=== PATIENT | female | born 1980 | race Caucasian/White ===

== ENCOUNTER 2018-06-08 14:15 | Emergency (ER) | payer MEDICARE, MEDICAID ==
--- NOTE | 2018-06-08 16:14 | EDM.PDOC ---
ED HPI GENERAL MEDICAL PROBLEM - General Chief Complaint: Abdominal Pain Stated Complaint: NAUSEA/VOMITING/ABDOMINAL PAIN Time Seen by Provider: 06/08/18 14:55 Source of Information: Reports: Patient History Limitations: Reports: No Limitations - History of Present Illness INITIAL COMMENTS - FREE TEXT/NARRATIVE: 37-year-old female with chronic abdominal bloating, nausea and vomiting which is worsening over the past couple of days. She usually doctors in [place] recently switched to [place] because she got "tired of the doctors up there ". She was seen in the clinic yesterday and started on Phenergan, called the clinic today to let them know that she wasn't doing any better so they sent her to the emergency room. She think she's been running fevers and having occasional chills, no diarrhea. She does not have a history of abdominal surgeries. Pain is mostly across the upper abdomen, worsens after eating. She claims she's got some kind of a diabetic neuropathy of her stomach. Worsens with: Reports: Eating Associated Symptoms: Reports: Fever/Chills, Malaise, Nausea/Vomiting. Denies: Loss of Appetite, Shortness of Breath abdominal Pain Score (Numeric/FACES): 6 - Related Data Allergies Allergy/AdvReac Type Severity Reaction Status Date / Time albuterol Allergy Tachycardia Verified 06/08/18 14:43 gabapentin Allergy Confusion Verified 06/08/18 14:43 pregabalin [From Lyrica] Allergy Confusion Verified 06/08/18 14:43 Home Meds: Home Meds ARIPiprazole [Aripiprazole] 30 mg PO DAILY 06/08/18 [History] Cefuroxime [Ceftin] 250 mg PO BID 06/08/18 [History] Dicyclomine [Bentyl] 10 mg PO ASDIRECTED 06/08/18 [History] Indomethacin [Indocin] 25 mg PO TID 06/08/18 [History] Ipratropium [place] 3 ml INH QID PRN 06/08/18 [History] LORazepam 1 mg PO BEDTIME PRN 06/08/18 [History] Levalbuterol Tartrate [Levalbuterol Tartrate Hfa] 2 puff IN Q4H PRN 06/08/18 [ History] Methylphenidate [Ritalin] 20 mg PO TID 06/08/18 [History] Montelukast [Singulair] 10 mg PO DAILY 06/08/18 [History] Naproxen [Naprosyn] 500 mg PO BID PRN 06/08/18 [History] Omeprazole 40 mg PO DAILY 06/08/18 [History] Pravastatin Sodium 10 mg PO DAILY 06/08/18 [History] Promethazine HCl 25 mg PO Q6H 06/08/18 [History] Sulfamethoxazole/Trimethoprim [Sulfamethoxazole-Tmp Ds Tablet] 1 tab PO BID [History] lamoTRIgine 300 mg PO DAILY 06/08/18 [History] metFORMIN HCl [Metformin HCl] 500 mg PO BID 06/08/18 [History] traMADol HCl [Tramadol HCl] 50 mg PO QID 06/08/18 [History] Past Medical History HEENT History: Reports: Impaired Vision Cardiovascular History: Reports: Other (See Below) Other Cardiovascular History: tachacardia Respiratory History: Reports: Asthma Gastrointestinal History: Reports: GERD Psychiatric History: Reports: Anxiety, Bipolar, Depression, Suicidal Ideation Endocrine/Metabolic History: Reports: Diabetes, Type II - Past Surgical History HEENT Surgical History: Reports: Other (See Below) Other HEENT Surgeries/Procedures: lanced cyst behind ear GI Surgical History: Reports: EGD Female Surgical History: Reports: Other (See Below) Other Female Surgeries/Procedures: rectal fistula Social & Family History - Tobacco Use Smoking Status *Q: Current Every Day Smoker Years of Tobacco use: 15 Packs/Tins Daily: 1.5 - Recreational Drug Use Recreational Drug Use: No ED ROS GENERAL - Review of Systems Review Of Systems: See Below Constitutional: Reports: Fever, Chills HEENT: Reports: No Symptoms Respiratory: Denies: Shortness of Breath Cardiovascular: Denies: Chest Pain GI/Abdominal: Reports: Abdominal Pain, Nausea, Vomiting. Denies: Diarrhea : Reports: No Symptoms Skin: Reports: No Symptoms Psychiatric: Reports: Anxiety ED EXAM, GI/ABD - Physical Exam Exam: See Below Exam Limited By: No Limitations General Appearance: Alert, No Apparent Distress Eyes: Bilateral: Normal Appearance (Normal hydration, no jaundice) Head: Atraumatic Respiratory/Chest: No Respiratory Distress, Lungs Clear GI/Abdominal Exam: Normal Bowel Sounds, Soft, Tender (Reacts with fairly significant tenderness to palpation across the upper abdomen) Extremities: Normal Inspection Neurological: Alert, Oriented Psychiatric: Normal Affect, Normal Mood Course - Vital Signs Last Recorded V/S: Last Vital Signs Temp 97.8 F 06/08/18 14:39 Pulse 109 H 06/08/18 14:39 Resp 12 06/08/18 14:39 BP 115/58 L 06/08/18 14:39 Pulse Ox 98 06/08/18 14:39 - Orders/Labs/Meds Orders: Active Orders 24 hr Category Date Time Status Abdomen Pelvis w Cont [CT] Stat Exams 06/08/18 15:59 Taken Labs: Laboratory Tests 06/08/18 06/08/18 Range/Units 15:12 15:12 WBC 11.8 H (4.5-11.0) K/uL RBC 4.72 (3.30-5.50) M/uL Hgb 14.3 (12.0-15.0) g/dL Hct 42.0 (36.0-48.0) % MCV 89 (80-98) fL MCH 30 (27-31) pg MCHC 34 (32-36) % Plt Count 279 (150-400) K/uL Neut % (Auto) 71 H (36-66) % Lymph % (Auto) 18 L (24-44) % Desha % (Auto) 8 H (2-6) % Eos % (Auto) 3 (2-4) % Baso % (Auto) 0 (0-1) % Sodium 140 (140-148) mmol/L Potassium 4.1 (3.6-5.2) mmol/L Chloride 104 (100-108) mmol/L Carbon Dioxide 27 (21-32) mmol/L Anion Gap 9.3 (5.0-14.0) mmol/L BUN 7 (7-18) mg/dL Creatinine 0.8 (0.6-1.0) mg/dL Est Cr Clr Drug Dosing 91.88 mL/min Estimated GFR (MDRD) > 60 (>60) Glucose 189 H (74-106) mg/dL Calcium 9.0 (8.5-10.1) mg/dL Total Bilirubin 0.1 L (0.2-1.0) mg/dL AST 12 L (15-37) U/L ALT 26 (12-78) U/L Alkaline Phosphatase 62 (46-116) U/L Total Protein 6.6 (6.4-8.2) g/dL Albumin 3.3 L (3.4-5.0) g/dL Globulin 3.3 (2.3-3.5) g/dL Albumin/Globulin Ratio 1.0 L (1.2-2.2) Amylase 43 (25-115) U/L Lipase 153 (73-393) U/L Meds: Medications Discontinued Medications Generic Name Dose Route Start Last Admin Trade Name Lauri PRN Reason Stop Dose Admin Sodium Chloride 84 mls @ 3.5 mls/sec 06/08/18 16:15 06/08/18 18:16 Normal Saline IV 06/08/18 16:16 3.5 mls/sec ONETIME ONE Administration Iopamidol 146 ml 06/08/18 16:15 06/08/18 16:20 Isovue-300 (61%) IV 06/08/18 16:16 146 ml . DIRECTED LAI Administration Sodium Chloride 10 ml 06/08/18 16:15 06/08/18 18:16 Saline Flush FLUSH 06/08/18 16:16 10 ml ONETIME ONE Administration - Re-Assessments/Exams Free Text/Narrative Re-Assessment/Exam: 06/08/18 16:13 CBC CMP amylase and lipase were obtained which were all normal. Patient was in the emergency room for 2 hours and had no nausea or vomiting. A CT the abdomen and pelvis with IV contrast was ordered because she insisted on finding what was wrong. 06/08/18 17:08 CT scan is completely normal. Recommended just 2 or 3 more days of antibiotic and recheck with her primary provider to see if she can cut back on some of her medications. Departure - Departure Time of Disposition: 17:29 Disposition: Home, Self-Care 01 Condition: Good Clinical Impression: Abdominal pain Qualifiers: Abdominal location: upper abdomen, unspecified Qualified Code(s): R10.10 - Upper abdominal pain, unspecified - Discharge Information Instructions: Abdominal Pain, Adult, [id number] Referrals: Lelo Camacho MD [Primary Care Provider] - Forms: ED Department Discharge Care Plan Goals: Continue antibiotic for 3 or 4 more days then stop. Continue your other medications and advance diet as tolerated. - My Orders Last 24 Hours: My Active Orders 06/08/18 15:59 Abdomen Pelvis w Cont [CT] Stat - Assessment/Plan Last 24 Hours: My Active Orders 06/08/18 15:59 Abdomen Pelvis w Cont [CT] Stat
[2018-06-08] MEDS ORDERED: Sodium Chloride 0.9% 10 ML Syringe FLUSH ONE (16:15)
[2018-06-08] MEDS ORDERED: Iopamidol 612 MG/ML 150 ML Bottle IV SCH (16:15)
== END 2018-06-08 17:29 | disposition home or self-care (01) ==
LOC: JP.ED 14:15
DX: R10.10 Upper abdominal pain, unspecified (principal); J45.909 Unspecified asthma, uncomplicated; K21.9 Gastro-esophageal reflux disease without esophagitis; E11.9 Type 2 diabetes mellitus without complications; F31.9 Bipolar disorder, unspecified; F41.9 Anxiety disorder, unspecified; F17.210 Nicotine dependence, cigarettes, uncomplicated; Z88.8 Allergy status to other drugs, medicaments and biological substances; Z79.899 Other long term (current) drug therapy; Z79.84 Long term (current) use of oral hypoglycemic drugs
CPT/HCPCS: 36415; 74177; 80053; 82150; 83690; 85025; 99284; J7030; 99283

== ENCOUNTER 2019-05-22 05:52 | Day surgery (SDC) | payer MEDICARE, MEDICAID ==
[2019-05-22] MEDS ORDERED: Propofol 200 MG/20 ML SDV ONE ×2 (06:48→09:11)
[2019-05-22] MEDS ORDERED: fentaNYL 100 MCG/2 ML SDV ONE (06:49)
[2019-05-22] MEDS ORDERED: Midazolam 1 MG/ML 2 ML SDV ONE (06:49)
[2019-05-22] MEDS ORDERED: Dextrose 5%-Lactated Ringers 1,000 ML IV SCH (07:00)
--- NOTE | 2019-05-25 14:08 | OR ---
DATE OF PROCEDURE: 05/22/2019 SURGEON: Curtis Hennessy MD PREOPERATIVE DIAGNOSIS: History of serrated polyp. POSTOPERATIVE DIAGNOSIS: One additional polyp in the mid transverse colon. OPERATIVE PROCEDURE: Flexible colonoscopy with polypectomy by snare technique. ANESTHESIA: IV sedation. INDICATIONS FOR PROCEDURE: This is a 38-year-old who 6 months ago underwent a colonoscopy at [facility]. She is having frequent loose bowel movements and random biopsies were obtained to rule out microscopic colitis which were negative. She was noted to have a semi sessile polyp in the hepatic flexure. The prep at that time was felt to be suboptimal and the patient will be at risk for having additional polyps not identified, and given this she was referred for a followup colonoscopy at this time. Potential risks including bleeding and perforation were discussed, and the patient wishes to proceed. DETAILS OF PROCEDURE: The patient was taken to the operating room and placed in a left lateral decubitus position. IV sedation was administered, after which the digital rectal exam was performed and was unremarkable. Colonoscope was passed into the rectum. The scope was not retroflexed due to fairly tight angle in this case and then the scope was eventually passed to the ileocecal valve with both the valve and appendiceal orifice being identified. Once again, the prep was somewhat suboptimal with there being quite a bit of green liquid stool present, which would obscure polyps traps up to 0.5 cm in size. In this case, there were no diverticula identified or areas of colitis. There was 1 additional polyp measuring about 8 to 10 mm located in the mid transverse colon. This was excised by means of the cautery snare technique and retrieved for histologic evaluation. Complete excision appeared to be present and the hemostasis at the snare site was satisfactory. Scope was then withdrawn. The above findings reconfirmed with no additional abnormalities being noted. We will contact the patient with regard to the pathology with the patient having 1 additional polyp being identified as well as having serrated polyp being confirmed 6 months ago, and then she probably should undergo another colonoscopy once again in 6 months as there is still definite possibility that we are not seeing all of the pathology. She will be instructed to take instead of 2 doses of the MiraLax in 32 ounces of Gatorade but to take 3 doses of the MiraLax with each dose include 119 g of MiraLax in 32 ounces of Gatorade. I suspect that MiraLax being taken should result in a satisfactory prep. She was instructed to contact us as 6 months approaches to set up the colonoscopy. Curtis Hennessy MD /[phone]
== END 2019-05-22 10:35 | disposition home or self-care (01) ==
LOC: JP.SDS 05:52
PROVIDERS: ATTEND Surgery
DX: Z09 Encounter for follow-up examination after completed treatment for conditions other than malignant neoplasm (principal); D12.3 Benign neoplasm of transverse colon; K21.9 Gastro-esophageal reflux disease without esophagitis; E11.9 Type 2 diabetes mellitus without complications; F17.210 Nicotine dependence, cigarettes, uncomplicated; E66.9 Obesity, unspecified; Z86.010 Personal history of colon polyps; Z68.34 Body mass index [BMI] 34.0-34.9, adult
CPT/HCPCS: 45385; 88305; J2250; J2704; J3010; J7121

== ENCOUNTER 2019-09-15 11:53 | Emergency (ER) | payer MEDICARE, MEDICAID ==
--- NOTE | 2019-09-15 12:22 | EDM.PDOC ---
ED HPI GENERAL MEDICAL PROBLEM - General Chief Complaint: Abdominal Pain Stated Complaint: DIVERTICULITIS Time Seen by Provider: 09/15/19 12:21 Source of Information: Reports: Patient History Limitations: Reports: No Limitations - History of Present Illness INITIAL COMMENTS - FREE TEXT/NARRATIVE: pt arrived at the hosp with increased abdomanal pain and she feels like her abdoman is distended. She has had constipated stool. Duration: Hour(s): Location: Reports: Abdomen Associated Symptoms: Reports: Nausea/Vomiting, Other (pt is not holding her fluids or food down at this point. ) Abdomen Pain Score (Numeric/FACES): 8 - Related Data Allergies Allergy/AdvReac Type Severity Reaction Status Date / Time albuterol AdvReac Tachycardia Verified 09/15/19 15:11 gabapentin AdvReac Confusion Verified 09/15/19 15:11 hydrocodone AdvReac Irritabilit Verified 09/15/19 15:11 y pregabalin [From Lyrica] AdvReac Confusion Verified 09/15/19 15:11 Home Meds: Home Meds ARIPiprazole [Aripiprazole] 30 mg PO DAILY 06/08/18 [History] Dicyclomine [Bentyl] 10 mg PO QID PRN 06/08/18 [History] Levalbuterol Tartrate [Levalbuterol Tartrate Hfa] 2 puff IN Q4H PRN 06/08/18 [ History] Montelukast [Singulair] 10 mg PO DAILY 06/08/18 [History] Omeprazole 40 mg PO BID 06/08/18 [History] Pravastatin Sodium 10 mg PO DAILY 06/08/18 [History] lamoTRIgine 300 mg PO DAILY 06/08/18 [History] metFORMIN HCl [Metformin HCl] 500 mg PO BID 06/08/18 [History] traMADol HCl [Tramadol HCl] 50 mg PO Q8H PRN 06/08/18 [History] Amphetamine/Dextroamphetamine [Adderall XR] 20 mg PO TID 05/18/19 [History] Diclofenac Sodium [Voltaren 1% Gel] 1 applic TOP ASDIRECTED PRN 05/18/19 [ History] Fluticasone/Salmeterol [Advair 500-50] 1 inh INH DAILY 05/18/19 [History] Ipratropium/Albuterol Sulfate [Iprat-Albut 0.5-3(2.5) MG/3 ML] 3 ml IH ASDIRECTED 05/18/19 [History] Tiotropium [Spiriva] 18 mcg INH DAILY 05/18/19 [History] methocarbamoL [Robaxin] 500 mg PO TID PRN 05/18/19 [History] metroNIDAZOLE [Flagyl] 500 mg PO TID PRN 05/18/19 [History] levonorgestreL [Kyleena] 1 device VAG .[id number] 05/22/19 [History] Ciprofloxacin HCl [Cipro] 500 mg PO BID 09/15/19 [History] Past Medical History HEENT History: Reports: Impaired Vision, Other (See Below) Other HEENT History: autoimmune disorder affecting sinuses, chronic dry eyes with nasal drainage Cardiovascular History: Reports: Other (See Below) Other Cardiovascular History: tachycardia Respiratory History: Reports: Asthma, Sleep Apnea Gastrointestinal History: Reports: Diverticulosis, GERD, Irritable Bowel Syndrome, Other (See Below) Other Gastrointestinal History: small intestinal bacterial overgrowth, serrated adenoma of colon Genitourinary History: Reports: None CURBING STONECUTTER History: Reports: Polycystic Ovaries, , Other (See Below) Other CURBING STONECUTTER History: IUD Musculoskeletal History: Reports: Back Pain, Chronic, Connective Tissue Disease , Osteoarthritis, Other (See Below) Other Musculoskeletal History: chronic bilat thoracic back pain, chronic right shoulder pain, multisystem atrophy Neurological History: Reports: Concussion, Headaches, Chronic Psychiatric History: Reports: Anxiety, Bipolar, Depression, Suicidal Ideation, Other (See Below) Other Psychiatric History: insomnia Endocrine/Metabolic History: Reports: Diabetes, Type II, Obesity/BMI 30+ Oncologic (Cancer) History: Reports: Other (See Below) Other Oncologic History: serrated adenoma of colon - Infectious Disease History Infectious Disease History: Reports: Chicken Pox, MRSA, Other (See Below) Other Infectious Disease History: right groin wound + for MRSA - treated successfully with course of antibiotics - Past Surgical History HEENT Surgical History: Reports: Other (See Below) Other HEENT Surgeries/Procedures: lanced cyst behind ear Cardiovascular Surgical History: Reports: None Respiratory Surgical History: Reports: None GI Surgical History: Reports: Colonoscopy, EGD Female Surgical History: Reports: Other (See Below) Other Female Surgeries/Procedures: rectal fistula Endocrine Surgical History: Reports: None Neurological Surgical History: Reports: None Musculoskeletal Surgical History: Reports: Shoulder Surgery Oncologic Surgical History: Reports: None Dermatological Surgical History: Reports: None Social & Family History - Tobacco Use Smoking Status *Q: Current Every Day Smoker Years of Tobacco use: 20 Packs/Tins Daily: 1.5 Used Tobacco, but Quit: No Second Hand Smoke Exposure: No - Caffeine Use Caffeine Use: Reports: Coffee - Recreational Drug Use Recreational Drug Use: No ED ROS GENERAL - Review of Systems Review Of Systems: See Below Constitutional: Reports: Weakness, Decreased Appetite HEENT: Reports: No Symptoms Respiratory: Reports: No Symptoms Cardiovascular: Reports: No Symptoms Endocrine: Reports: No Symptoms GI/Abdominal: Reports: Abdominal Pain, Constipation, Nausea, Vomiting : Reports: No Symptoms Musculoskeletal: Reports: No Symptoms ED EXAM, GI/ABD - Physical Exam Exam: See Below Text/Narrative:: pt arrived with a history of vomiting part what she eats. She has pain in the epigastric area, She had a cat scan of her neck soft tissue which showed a possible larngocoel. She feels distended, Exam Limited By: No Limitations General Appearance: Alert, Anxious, Moderate Distress Ears: Normal TMs Throat/Mouth: Normal Inspection Head: Atraumatic Neck: Other (slight fullness in the rt side of the neck. ) Cardiovascular: Regular Rate, Rhythm GI/Abdominal Exam: Soft, Non-Tender (Female) Exam: Deferred Psychiatric: Normal Affect Course - Vital Signs Last Recorded V/S: Last Vital Signs Temp 36.6 C 09/15/19 15:34 Pulse 81 09/15/19 15:34 Resp 16 09/15/19 15:34 BP 117/63 09/15/19 15:34 Pulse Ox 97 09/15/19 15:34 - Orders/Labs/Meds Orders: Active Orders 24 hr Category Date Time Status Iopamidol [Isovue-300 (61%)] Med 09/15/19 13:30 Active 100 ml IV . DIRECTED Sodium Chloride 0.9% [Normal Saline] 1,000 ml Med 09/15/19 12:30 Active IV ASDIRECTED Sodium Chloride 0.9% [Normal Saline] 1,000 ml Med 09/15/19 14:15 Active IV ASDIRECTED Sodium Chloride 0.9% [Normal Saline] 80 ml Med 09/15/19 13:30 Active IV ASDIRECTED Sodium Chloride 0.9% [Saline Flush] Med 09/15/19 13:19 Active 10 ml FLUSH ASDIRECTED PRN Medication Orders Sodium Chloride (Normal Saline) 1,000 mls @ 999 mls/hr IV ASDIRECTED LAI Last Admin: 09/15/19 12:35 Dose: 999 mls/hr Sodium Chloride (Normal Saline) 80 mls @ 3 mls/sec IV ASDIRECTED LAI Last Admin: 09/15/19 13:32 Dose: 3 mls/sec Sodium Chloride (Normal Saline) 1,000 mls @ 999 mls/hr IV ASDIRECTED LAI Last Admin: 09/15/19 15:17 Dose: 999 mls/hr Iopamidol (Isovue-300 (61%)) 100 ml IV . DIRECTED LAI Last Admin: 09/15/19 13:32 Dose: 100 ml Sodium Chloride (Saline Flush) 10 ml FLUSH ASDIRECTED PRN PRN Reason: Keep Vein Open Last Admin: 09/15/19 13:32 Dose: 10 ml Labs: Laboratory Tests 09/15/19 09/15/19 09/15/19 Range/Units 12:22 12:31 12:31 WBC 8.8 (4.5-11.0) K/uL RBC 4.97 (3.30-5.50) M/uL Hgb 14.9 (12.0-15.0) g/dL Hct 43.9 (36.0-48.0) % MCV 88 (80-98) fL MCH 30 (27-31) pg MCHC 34 (32-36) % Plt Count 370 (150-400) K/uL Neut % (Auto) 66 (36-66) % Lymph % (Auto) 23 L (24-44) % Bond % (Auto) 8 H (2-6) % Eos % (Auto) 2 (2-4) % Baso % (Auto) 0 (0-1) % Sodium (140-148) mmol/L Potassium (3.6-5.2) mmol/L Chloride (100-108) mmol/L Carbon Dioxide (21-32) mmol/L Anion Gap (5.0-14.0) mmol/L BUN (7-18) mg/dL Creatinine (0.6-1.0) mg/dL Est Cr Clr Drug Dosing mL/min Estimated GFR (MDRD) (>60) Glucose (74-106) mg/dL Calcium (8.5-10.1) mg/dL Total Bilirubin (0.2-1.0) mg/dL AST (15-37) U/L ALT (12-78) U/L Alkaline Phosphatase (46-116) U/L C-Reactive Protein 0.65 H (0.0-0.3) mg/dL Total Protein (6.4-8.2) g/dL Albumin (3.4-5.0) g/dL Globulin (2.3-3.5) g/dL Albumin/Globulin Ratio (1.2-2.2) Lipase (73-393) U/L Urine Color Yellow (YELLOW) Urine Appearance Clear (CLEAR) Urine pH 7.5 (5.0-8.0) Ur Specific [place] 1.025 (1.008-1.030) Urine Protein 30 H (NEGATIVE) mg/dL Urine Glucose (UA) Negative (NEGATIVE) mg/dL Urine Ketones Negative (NEGATIVE) mg/dL Urine Occult Blood Negative (NEGATIVE) Urine Nitrite Negative (NEGATIVE) Urine Bilirubin Negative (NEGATIVE) Urine Urobilinogen 0.2 (0.2-1.0) EU/dL Ur Leukocyte Esterase Negative (NEGATIVE) Urine RBC Not seen (0-5) Urine WBC 0-5 (0-5) Ur Epithelial Cells Many Urine Bacteria Rare 09/15/19 Range/Units 12:31 WBC (4.5-11.0) K/uL RBC (3.30-5.50) M/uL Hgb (12.0-15.0) g/dL Hct (36.0-48.0) % MCV (80-98) fL MCH (27-31) pg MCHC (32-36) % Plt Count (150-400) K/uL Neut % (Auto) (36-66) % Lymph % (Auto) (24-44) % Bond % (Auto) (2-6) % Eos % (Auto) (2-4) % Baso % (Auto) (0-1) % Sodium 133 L (140-148) mmol/L Potassium 4.1 (3.6-5.2) mmol/L Chloride 97 L (100-108) mmol/L Carbon Dioxide 26 (21-32) mmol/L Anion Gap 14.1 H (5.0-14.0) mmol/L BUN 7 (7-18) mg/dL Creatinine 0.9 (0.6-1.0) mg/dL Est Cr Clr Drug Dosing 80.90 mL/min Estimated GFR (MDRD) > 60 (>60) Glucose 163 H (74-106) mg/dL Calcium 9.0 (8.5-10.1) mg/dL Total Bilirubin 0.3 D (0.2-1.0) mg/dL AST 27 D (15-37) U/L ALT 52 D (12-78) U/L Alkaline Phosphatase 70 (46-116) U/L C-Reactive Protein (0.0-0.3) mg/dL Total Protein 7.0 (6.4-8.2) g/dL Albumin 3.6 (3.4-5.0) g/dL Globulin 3.4 (2.3-3.5) g/dL Albumin/Globulin Ratio 1.1 L (1.2-2.2) Lipase 133 (73-393) U/L Urine Color (YELLOW) Urine Appearance (CLEAR) Urine pH (5.0-8.0) Ur Specific [place] (1.008-1.030) Urine Protein (NEGATIVE) mg/dL Urine Glucose (UA) (NEGATIVE) mg/dL Urine Ketones (NEGATIVE) mg/dL Urine Occult Blood (NEGATIVE) Urine Nitrite (NEGATIVE) Urine Bilirubin (NEGATIVE) Urine Urobilinogen (0.2-1.0) EU/dL Ur Leukocyte Esterase (NEGATIVE) Urine RBC (0-5) Urine WBC (0-5) Ur Epithelial Cells Urine Bacteria Meds: Medications Generic Name Dose Route Start Last Admin Trade Name Freq PRN Reason Stop Dose Admin Sodium Chloride 1,000 mls @ 999 mls/hr 09/15/19 12:30 09/15/19 12:35 Normal Saline IV 999 mls/hr ASDIRECTED LAI Administration Sodium Chloride 80 mls @ 3 mls/sec 09/15/19 13:30 09/15/19 13:32 Normal Saline IV 3 mls/sec ASDIRECTED LAI Administration Sodium Chloride 1,000 mls @ 999 mls/hr 09/15/19 14:15 09/15/19 15:17 Normal Saline IV 999 mls/hr ASDIRECTED LAI Administration Iopamidol 100 ml 09/15/19 13:30 09/15/19 13:32 Isovue-300 (61%) IV 100 ml . DIRECTED LAI Administration Sodium Chloride 10 ml 09/15/19 13:19 09/15/19 13:32 Saline Flush FLUSH 10 ml ASDIRECTED PRN Administration Keep Vein Open Discontinued Medications Generic Name Dose Route Start Last Admin Trade Name Freq PRN Reason Stop Dose Admin Famotidine 20 mg 09/15/19 15:11 09/15/19 15:19 Pepcid PO 09/15/19 15:12 20 mg ONETIME ONE Administration Hydromorphone HCl 0.5 mg 09/15/19 12:43 09/15/19 12:50 Dilaudid IVPUSH 09/15/19 12:44 0.5 mg ONETIME ONE Administration Ketorolac Tromethamine 30 mg 09/15/19 15:12 09/15/19 15:20 Toradol IVPUSH 09/15/19 15:13 30 mg ONETIME ONE Administration Ondansetron HCl 4 mg 09/15/19 12:23 09/15/19 12:35 Zofran IVPUSH 09/15/19 12:24 4 mg ONETIME ONE Administration Ondansetron HCl 4 mg 09/15/19 15:10 09/15/19 15:20 Zofran IVPUSH 09/15/19 15:11 4 mg ONETIME ONE Administration - Re-Assessments/Exams Free Text/Narrative Re-Assessment/Exam: 09/15/19 15:14 pt had a cat scan of the abdoman today which did not show acute problems. The cat scan she had in [place] showed a possible early diverticulitis. pt is on flagyl and cipro since yesterday. She feels like she has something in her throat and there is the quetion of the laryngocoel 09/15/19 16:26 pt was given torodol and did get relief of the pain. pt is doing better will treat for constipation, and pt will continue antibiotics. 09/15/19 16:30 Departure - Departure Time of Disposition: 16:26 Disposition: Home, Self-Care 01 Condition: Fair Clinical Impression: Diverticulitis large intestine, Dehydration, Constipation - Discharge Information Referrals: Lelo Camacho MD [Primary Care Provider] - Forms: ED Department Discharge Care Plan Goals: continue antibiotic--possible diverticulitis in Summer on cat scan, cat scan on tuesday in [place] was neg, possible larngoceol needs ENT referal, appt with Dr Camacho, not vertual, mag citrate drink a full botte today and if no results use a dose of miralax tomorrow, torodol 10mg q6h prn for pain Sepsis Event Note - Evaluation Sepsis Screening Result: No Definite Risk - Focused Exam Vital Signs: Vital Signs Temp Pulse Resp BP Pulse Ox 09/15/19 15:34 36.6 C 81 16 117/63 97 09/15/19 12:11 36.5 C 117 H 18 114/76 97 Date Exam was Performed: 09/15/19 Time Exam was Performed: 16:26 - My Orders Last 24 Hours: My Active Orders 09/15/19 12:30 Sodium Chloride 0.9% [Normal Saline] 1,000 ml IV ASDIRECTED 09/15/19 13:19 Sodium Chloride 0.9% [Saline Flush] 10 ml FLUSH ASDIRECTED PRN 09/15/19 13:30 Iopamidol [Isovue-300 (61%)] 100 ml IV . DIRECTED Sodium Chloride 0.9% [Normal Saline] 80 ml IV ASDIRECTED 09/15/19 14:15 Sodium Chloride 0.9% [Normal Saline] 1,000 ml IV ASDIRECTED - Assessment/Plan Last 24 Hours: My Active Orders 09/15/19 12:30 Sodium Chloride 0.9% [Normal Saline] 1,000 ml IV ASDIRECTED 09/15/19 13:19 Sodium Chloride 0.9% [Saline Flush] 10 ml FLUSH ASDIRECTED PRN 09/15/19 13:30 Iopamidol [Isovue-300 (61%)] 100 ml IV . DIRECTED Sodium Chloride 0.9% [Normal Saline] 80 ml IV ASDIRECTED 09/15/19 14:15 Sodium Chloride 0.9% [Normal Saline] 1,000 ml IV ASDIRECTED
[2019-09-15] MEDS ORDERED: Ondansetron 4 MG/2 ML SDV IVPUSH ONE ×2 (12:23→15:10)
[2019-09-15] MEDS ORDERED: Sodium Chloride 0.9% 1,000 ML IV SCH ×2 (12:30→14:15)
[2019-09-15] MEDS ORDERED: HYDROmorphone 0.5 MG/0.5 ML Syringe IVPUSH ONE (12:43)
[2019-09-15] MEDS ORDERED: Sodium Chloride 0.9% 10 ML Syringe FLUSH PRN (13:19)
[2019-09-15] MEDS ORDERED: Iopamidol 612 MG/ML 100 ML Bottle IV SCH (13:30)
[2019-09-15] MEDS ORDERED: Sodium Chloride 0.9% 80 ML IV SCH (13:30)
--- NOTE | 2019-09-15 14:42 | CRLCT ---
Indication: Diffuse abdominal pain. Technique: Multiple contiguous axial images were obtained from the lung bases through the symphysis pubis after the intravenous administration of 100 cc Omnipaque 300. Please note that all CT scans at this facility use dose modulation, iterative reconstruction, and/or weight-based dosing when appropriate to reduce radiation dose to as low as reasonably achievable. Comparison: May 24, 2019. Findings: The lung bases are clear. 3rd is normal in size. No pericardial effusion is identified. The liver, spleen, pancreas, adrenals, kidneys, and gallbladder normal. No intrahepatic biliary ductal dilatation is identified. No hydronephrosis is identified. The liver measures 20 cm in maximum dimension. In the pelvis, an IUD is identified within the uterus. The bladder is grossly normal. The small and large bowel are normal in caliber. Colonic diverticulosis is identified. There is no evidence of diverticulitis. The appendix is normal in caliber. No free air or free fluid is identified within the abdomen or pelvis. The aorta is normal in caliber. No lytic or blastic lesions of the spine are identified. Impression: Colonic diverticulosis without evidence of diverticulitis. Borderline hepatomegaly. Please note that all CT scans at this facility use dose modulation, iterative reconstruction, and/or weight-based dosing when appropriate to reduce radiation dose to as low as reasonably achievable. Dictated by Maria Antonia Pepe MD @ Sep 15 2019 2:37PM Signed by Dr. Maria Antonia Pepe @ Sep 15 2019 2:41PM
[2019-09-15] MEDS ORDERED: Famotidine 20 MG Tab PO ONE (15:11)
[2019-09-15] MEDS ORDERED: Ketorolac 30 MG/ML SDV IVPUSH ONE (15:12)
[2019-09-15] MEDS ORDERED: Magnesium Citrate Solution 296 ML Bottle PO ONE (16:29)
== END 2019-09-15 16:44 | disposition home or self-care (01) ==
LOC: JP.ED 11:53
DX: K57.32 Diverticulitis of large intestine without perforation or abscess without bleeding (principal); K59.00 Constipation, unspecified; E86.0 Dehydration; J45.909 Unspecified asthma, uncomplicated; K21.9 Gastro-esophageal reflux disease without esophagitis; F31.9 Bipolar disorder, unspecified; F41.9 Anxiety disorder, unspecified; E11.9 Type 2 diabetes mellitus without complications; F17.210 Nicotine dependence, cigarettes, uncomplicated; E66.9 Obesity, unspecified; Z79.84 Long term (current) use of oral hypoglycemic drugs; Z79.899 Other long term (current) drug therapy; Z68.37 Body mass index [BMI] 37.0-37.9, adult; Z88.8 Allergy status to other drugs, medicaments and biological substances; Z88.5 Allergy status to narcotic agent
CPT/HCPCS: 36415; 74177; 80053; 81001; 83690; 85025; 86140; 96361; 96374; 96375; 96376; 99284; A9270; J1170; J1885; J2405; J7030; J7050; Q9967

== ENCOUNTER 2019-10-19 05:25 | Day surgery (SDC) | payer MEDICARE, MEDICAID ==
[2019-10-19] MEDS ORDERED: Dextrose 5%-Lactated Ringers 1,000 ML IV SCH (06:00)
[2019-10-19] MEDS ORDERED: Propofol 200 MG/20 ML SDV ONE ×2 (07:54→09:10)
[2019-10-19] MEDS ORDERED: fentaNYL 100 MCG/2 ML SDV ONE (07:55)
[2019-10-19] MEDS ORDERED: Midazolam 1 MG/ML 2 ML SDV ONE (07:55)
[2019-10-19 11:17] LABS: HEMOGLOBIN A1C 7.1 % (4.5-6.2)
--- NOTE | 2019-10-29 11:04 | OR ---
DATE OF PROCEDURE: 10/19/2019 SURGEON: Curtis Hennessy MD PREOPERATIVE DIAGNOSES: 1. Severe gastroesophageal reflux disease. 2. History of colonic polyps with colonoscopies involving poor prep. POSTOPERATIVE DIAGNOSES: 1. Severe gastroesophageal reflux disease. 2. Retained gastric food (bezoar) consistent with diabetic gastroparesis. 3. Two additional colon polyps involving hepatic flexure and sigmoid colon. OPERATIVE PROCEDURES: 1. Esophagogastroduodenoscopy with: a. Biopsies of esophagogastric junction for histologic evaluation. b. Biopsies of antrum for CLOtest (91240). 2. Flexible colonoscopy with: a. Biopsy of hepatic flexure polyp (complete removal by biopsy) (60699). b. Polypectomy by snare technique of sigmoid colon polyp (89499). c. Injection of Magi Ink at sigmoid colon polypectomy site (71620). ANESTHESIA: IV sedation. INDICATIONS FOR PROCEDURE: This is a 38-year-old patient with longstanding type 2 diabetes mellitus, presenting with severe gastroesophageal reflux disease. The patient presently is on maximal proton pump inhibitor treatment, specifically omeprazole 40 mg b.i.d., as well as Zofran chronically for associated nausea. She is status post previous colonoscopy. Initially, this was several months ago in [facility]. She underwent a polypectomy in [facility] for what appeared to be a serrated polyp. Prep at that time was very poor, and they recommended additional colonoscopy. This was done here in [place] in May. This showed one additional polyp in the mid transverse colon, but again the preparation in this case was still quite poor, leading to the assumption that significant polypoid tissue could be missed, and given these sessile polyps occurring at a relative young age, it was felt that an aggressive surveillance regimen would be warranted, i.e. colonoscopy until everything is clear in the setting of a good prep. Plan is to proceed with upper and lower endoscopy with biopsies and/or polypectomy as indicated. Potential risks including bleeding and perforation were discussed, and the patient wishes to proceed. DETAILS OF PROCEDURE: The patient was taken to the operating room and placed in a left lateral decubitus position. IV sedation was administered, after which the upper GI endoscope was passed orally through the length of the esophagus and into the stomach with retroflexion view of the fundus, and thereafter through the pyloric channel into the junction of the third and fourth portions of the duodenum. Findings included quite severe gastroesophageal reflux disease with larynx and hypopharynx being somewhat reddened consistent with some ongoing reflux. The patient had a small hiatal hernia, but a very wide open esophagogastric junction with some erosions that were associated with some bleeding with only minor contact with the gastroscope. There is no stricturing or plaquing or suggestion of neoplastic change. Within the stomach, there was a moderate amount of retained food consistent with gastric bezoar. This was associated with some mild redness within the stomach, more or less diffusely, along with some bowel retention, all of which would be consistent with a diabetic gastroparesis. The visualized portions of the pyloric channel and duodenum were unremarkable. At this point, biopsies were obtained from the antrum and sent for CLOtest to establish the patient's H pylori status, and then multiple biopsies were obtained from esophagogastric junction and sent for histologic evaluation. No bleeding from the biopsy sites was seen and the procedure was then concluded. Attention was then taken to the flexible colonoscopy. Initial digital rectal exam was performed, which was unremarkable. Colonoscope was then passed into the rectum with retroflexion revealing uncomplicated hemorrhoidal columns. Scope was then manipulated to the level of the cecum. The prep in this case was quite good with only a very small amount of liquid stool present. There were no diverticula noted or areas of colitis. Two additional polyps noted, one was a very small one in the hepatic flexure. This was removed with 2 bites of the biopsy forceps, completely removing it grossly. One additional polyp was located, slightly larger but still quite small, within the sigmoid colon. This measured around 0.5 cm. This was then excised by means of snare technique, and polyp was then evacuated and sent for histologic evaluation. Sigmoid polypectomy site was then marked with Magi Ink injected in the submucosa adjacent to the polypectomy site, in the event that subsequent resection would be required. At that point, no further problems were noted. Scope was withdrawn, and the patient was taken to the recovery room in satisfactory condition. Continuing on a preoperative discussion regarding her reflux situation, the plan at this point will be to proceed with a proximal partial gastrectomy with Diane-en-Y reconstruction. The indicated procedure in this case with regard to the gastroesophageal reflux disease, as Hillary fundoplication in association with the gastroparesis would be a setup for severe problems with postprandial bloating and a likely failed Hillary. Whereas, the partial gastrectomy would more or less bypass the remainder of the stomach, which is at this point dysfunction in terms of emptying capacity. This would also have some additional benefits in terms of weight loss and probable resolution of her diabetes. This will be scheduled for this coming Tuesday. With regard to the colon, a repeat colonoscopy in 1 year should be undertaken. Curtis Hennessy MD /[id number]
== END 2019-10-19 10:55 | disposition home or self-care (01) ==
LOC: JP.SDS 05:25
PROVIDERS: ATTEND Surgery
DX: D12.3 Benign neoplasm of transverse colon (principal); K21.9 Gastro-esophageal reflux disease without esophagitis; K44.9 Diaphragmatic hernia without obstruction or gangrene; E11.43 Type 2 diabetes mellitus with diabetic autonomic (poly)neuropathy; K31.84 Gastroparesis; T18.2XXA Foreign body in stomach, initial encounter; E66.9 Obesity, unspecified; F32.9 Major depressive disorder, single episode, unspecified; R06.2 Wheezing; Z11.59 Encounter for screening for other viral diseases; Z86.010 Personal history of colon polyps; Z98.890 Other specified postprocedural states; Z68.36 Body mass index [BMI] 36.0-36.9, adult
CPT/HCPCS: 36415; 43239; 45380; 45381; 45385; 80053; 81025; 83036; 83735; 83880; 84100; 85027; 86850; 86900; 86901; 87081; 88305; J2250; J2704; J3010; J7121; U0002

== ENCOUNTER 2019-10-22 08:00 | Inpatient (IN) | payer MEDICARE, MEDICAID ==
[2019-10-22] MEDS ORDERED: Glycopyrrolate 0.2 MG/ML 5 ML MDV ONE (08:13)
[2019-10-22] MEDS ORDERED: Neostigmine Methylsulfate 1 MG/ML 5 ML Syringe ONE (08:13)
[2019-10-22] MEDS ORDERED: Dexamethasone 4 MG/ML SDV ONE (08:13)
[2019-10-22] MEDS ORDERED: Propofol 200 MG/20 ML SDV ONE (08:13)
[2019-10-22] MEDS ORDERED: Ondansetron 4 MG/2 ML SDV ONE (08:13)
[2019-10-22] MEDS ORDERED: Rocuronium 50 MG/5 ML Vial ONE (08:13)
[2019-10-22] MEDS ORDERED: Succinylcholine 200 MG/10 ML MDV ONE (08:13)
[2019-10-22] MEDS ORDERED: fentaNYL 250 MCG/5 ML SDV ONE ×3 (08:14→11:27)
[2019-10-22] MEDS ORDERED: Celecoxib 200 MG Cap PO ONE (09:00)
[2019-10-22] MEDS ORDERED: Acetaminophen 500 MG Tab PO ONE (09:00)
[2019-10-22] MEDS ORDERED: Scopolamine 1.5 MG Transdermal Patch TRDERM SCH (09:00)
[2019-10-22] MEDS ORDERED: Dextrose 5%-Lactated Ringers 1,000 ML IV SCH (09:30)
[2019-10-22] MEDS ORDERED: Levalbuterol HCl 0.63 MG/3 ML Neb NEB ONE (10:00)
[2019-10-22] MEDS ORDERED: cefOXitin 2 GM in Sodium Chloride 0.9% 50 ML IV ONE (10:30)
[2019-10-22] MEDS ORDERED: Ketamine 500 MG/5 ML MDV IV SCH (10:30)
[2019-10-22] MEDS ORDERED: Ketamine 50 MG in Sodium Chloride 0.9% 49.5 ML IV SCH (10:30)
[2019-10-22] MEDS ORDERED: Magnesium Sulfate 3 GM in Sodium Chloride 0.9% 100 ML IV SCH (10:30)
[2019-10-22] MEDS: cefOXitin 2 GM Vial ONE ×2 (11:13→11:59)
[2019-10-22] MEDS ORDERED: hydrOXYzine HCL 100 MG/2 ML SDV IM ONE (12:36)
[2019-10-22] MEDS ORDERED: Insulin Lispro 100 Unit/ML 3 ML KwikPen SUBCUT ONE (12:48)
[2019-10-22] MEDS ORDERED: fentaNYL 100 MCG/2 ML SDV IVPUSH ONE (12:58)
[2019-10-22] MEDS ORDERED: hydrOXYzine HCL 100 MG/2 ML SDV IM PRN (14:22)
[2019-10-22] MEDS ORDERED: Acetaminophen 500 MG Tab PO PRN (14:22)
[2019-10-22] MEDS ORDERED: Calcium Gluconate 10% 1 GM/10 ML SDV IVPUSH PRN (14:22)
[2019-10-22] MEDS ORDERED: Cyclobenzaprine 10 MG Tab PO PRN (14:22)
[2019-10-22] MEDS ORDERED: diphenhydrAMINE 50 MG/ML SDV IVPUSH PRN (14:22)
[2019-10-22] MEDS ORDERED: Albuterol/Ipratropium 3.0-0.5 MG/3 ML Neb Soln INH PRN (14:22)
[2019-10-22] MEDS ORDERED: Insulin Lispro 100 Unit/ML 3 ML KwikPen SUBCUT PRN (14:22)
[2019-10-22] MEDS ORDERED: Metoclopramide 10 MG/2 ML SDV IVPUSH PRN (14:22)
[2019-10-22] MEDS ORDERED: HYDROmorphone 0.5 MG/0.5 ML Syringe IVPUSH PRN (14:22)
[2019-10-22] MEDS ORDERED: Labetalol 20 MG/4 ML Syringe IVPUSH PRN (14:22)
[2019-10-22] MEDS: Lactated Ringers 1,000 ML IV SCH (14:24)
[2019-10-22] MEDS: Dextrose 5%-Lactated Ringers 1,000 ML IV SCH (14:24)
[2019-10-22] MEDS ORDERED: Levalbuterol HCl 0.63 MG/3 ML Neb NEB PRN (14:35)
[2019-10-22] MEDS ORDERED: Albuterol/Ipratropium 3.0-0.5 MG/3 ML Neb Soln INH SCH (15:00)
[2019-10-22] MEDS: Heparin Sodium 5,000 Units/ML Vial SUBCUT SCH (15:35)
[2019-10-22] MEDS: Ondansetron 4 MG/2 ML SDV IVPUSH PRN (15:35)
[2019-10-22] MEDS: Amphetamine/Dextroamphetamine Salts 10 MG Tab PO SCH (15:35)
[2019-10-22] MEDS: Levalbuterol HCl 0.63 MG/3 ML Neb NEB SCH ×2 (15:48→20:47)
[2019-10-22] MEDS ORDERED: MVI, Adult with Vitamin K 10 ML, Thiamine 200 MG, Chromium/Copper/Mang/Selen/Zn 1 ML in... IV SCH ×4 (16:00)
[2019-10-22] MEDS: cefOXitin 2 GM in Sodium Chloride 0.9% 50 ML IV SCH ×2 (16:09→21:26)
[2019-10-22] MEDS: HYDROmorphone 1 MG/ML Syringe IV PRN ×2 (16:15→20:50)
[2019-10-22] MEDS ORDERED: Pantoprazole 40 MG Vial IVPUSH SCH (16:30)
[2019-10-22] MEDS: Glycopyrrolate 15.6 MCG Cap.W.Dev Kit of 6 IH SCH (20:54)
[2019-10-22] MEDS: Acetaminophen 500 MG Tab PO SCH (20:54)
[2019-10-22] MEDS: Montelukast 5 MG Tab.Chew PO SCH (20:55)
[2019-10-23] MEDS: oxyCODONE 5 MG Tab PO PRN ×4 (00:19→21:31)
[2019-10-23] MEDS: Dextrose 5%-Lactated Ringers 1,000 ML IV SCH (01:30)
[2019-10-23] MEDS: Lactated Ringers 1,000 ML IV SCH (01:30)
[2019-10-23] MEDS ORDERED: Iopamidol 612 MG/ML 50 ML SDV PO STA (02:21)
[2019-10-23] MEDS: HYDROmorphone 1 MG/ML Syringe IV PRN (02:56)
[2019-10-23] MEDS: cefOXitin 2 GM in Sodium Chloride 0.9% 50 ML IV SCH ×3 (03:07→15:26)
[2019-10-23] MEDS: Heparin Sodium 5,000 Units/ML Vial SUBCUT SCH ×2 (03:07→15:27)
[2019-10-23] MEDS: Acetaminophen 500 MG Tab PO SCH ×3 (03:07→19:44)
[2019-10-23] MEDS ORDERED: Lactated Ringers 1,000 ML IV SCH (07:06)
[2019-10-23] MEDS ORDERED: LEVALBUTEROL TARTRATE IN PRN (07:08)
[2019-10-23] MEDS ORDERED: Ipratropium 0.06% Nasal Spray 15 ML Bottle NASBOTH PRN (07:08)
[2019-10-23] MEDS: Ondansetron 4 MG Tab.DIS PO PRN (07:33)
[2019-10-23] MEDS: Levalbuterol HCl 0.63 MG/3 ML Neb NEB SCH ×4 (07:52→21:36)
[2019-10-23] MEDS: Fluticasone-Salmeterol 232-14 MCG Powder Inhalent INH SCH (07:53)
[2019-10-23] MEDS: Glycopyrrolate 15.6 MCG Cap.W.Dev Kit of 6 IH SCH ×2 (07:53→21:33)
[2019-10-23] MEDS: Amphetamine/Dextroamphetamine Salts 10 MG Tab PO SCH ×3 (08:49→15:26)
[2019-10-23] MEDS: lamoTRIgine 100 MG Tab PO SCH (08:49)
[2019-10-23] MEDS: Sertraline 25 MG Tab PO SCH (08:50)
[2019-10-23] MEDS: ARIPiprazole 10 MG Tab PO SCH (08:50)
[2019-10-23] MEDS: Celecoxib 200 MG Cap PO SCH ×2 (08:50→21:31)
[2019-10-23] MEDS: SCOPOLAMINE PATCH CHECK TOP SCH (08:51)
[2019-10-23] MEDS: Ondansetron 4 MG/2 ML SDV IVPUSH PRN (10:41)
[2019-10-23] MEDS: hydrOXYzine HCl 25 MG Tab PO PRN ×2 (10:56→18:22)
--- NOTE | 2019-10-23 11:22 | CR ---
[facility] HISTORY: Postbariatric surgery FINDINGS: Patient swallowed water-soluble contrast. Upright views of the abdomen show no evidence of extravasation or obstruction. There is a surgical drain in the left upper quadrant IMPRESSION: Status post bariatric surgery No extravasation or obstruction seen
--- NOTE | 2019-10-23 13:19 | PN ---
DATE OF SERVICE: 10/23/2019 SUBJECTIVE: Wendi is postoperative day #1. She reports her pain is controlled. She has been up ambulating. On a step 1 gastric bypass diet. She had 690 in, urine output 2550, and her SACHA drain put out 145. Blood sugars have been 168 and this morning was 147. She has been afebrile. Pain has been controlled with Dilaudid and oxycodone. Remainder of review of systems negative for any pertinent positives and negatives. OBJECTIVE: GENERAL: Wendi Slater is a pleasant 38-year-old female, alert and orientated. VITAL SIGNS: TPR at 0330; 98.9, 92, 16. Blood pressure 109/42. HEENT: Negative. NECK: Supple. HEART: Regular rate and rhythm. LUNGS: Clear. ABDOMEN: Dressings dry and intact. SACHA drain is draining a light pink serosanguineous drainage at 145 mL/hour. Abdominal binder is on. EXTREMITIES: Without peripheral edema. ASSESSMENT: Diagnostic laparoscopy with: 1. Partial gastrectomy with Diane-en-Y gastrojejunostomy. 2. Repair of esophageal diaphragmatic hernia. 3. Excision of mediastinal lipoma. 4. Needle liver biopsy. POSTOPERATIVE DIAGNOSES: 1. Paraesophageal diaphragmatic hernia with gastroesophageal reflux disease refractory to medical management. 2. Diabetic gastroparesis. 3. Marked hepatomegaly. 4. Mediastinal lipoma. Date of surgery: 10/22/2019. Surgeon: Curtis Hennessy MD. PLAN: 1. Dressing off, may shower. 2. Communication order: 3 med cups per hour, 1 every 20 minutes. 3. Step 2 gastric bypass diet. 4. Start aripiprazole 30 mg p.o. daily. 5. Atarax 25 mg p.o. q.4 hours p.r.n. pain. 6. Atrovent nasal spray 2 sprays t.i.d. p.r.n. rhinitis. 7. Levalbuterol tartrate 2 puffs inhalation every 4 hours p.r.n. shortness of breath. 8. Zofran ODT 4 mg sublingual every 4 hours p.r.n. nausea and vomiting. 9. Decrease IV lactated Ringer's to 100 mL per hour. 10.Discontinue D5 LR IV solution. 11.Discontinue Dilaudid IV 0.5 mg and 1 mg. 12.Continue ambulation and use of incentive spirometer. 13.We will evaluate p.r.n. or in a.m. Shruthi Hernandez PA-C /[id number]
[2019-10-23] MEDS ORDERED: MVI, Adult with Vitamin K 10 ML, Thiamine 200 MG, Chromium/Copper/Mang/Selen/Zn 1 ML in... IV SCH ×4 (16:00)
[2019-10-23] MEDS ORDERED: Pantoprazole 40 MG Delayed-Release Granules 1 Packet PO SCH (16:30)
[2019-10-23] MEDS: Montelukast 5 MG Tab.Chew PO SCH (21:31)
[2019-10-24] MEDS: Ondansetron 4 MG Tab.DIS PO PRN (00:16)
[2019-10-24] MEDS: hydrOXYzine HCl 25 MG Tab PO PRN (00:18)
[2019-10-24] MEDS: oxyCODONE 5 MG Tab PO PRN ×2 (04:28→09:16)
[2019-10-24] MEDS: Acetaminophen 500 MG Tab PO SCH ×2 (04:28→10:28)
[2019-10-24] MEDS: Heparin Sodium 5,000 Units/ML Vial SUBCUT SCH (04:29)
[2019-10-24] MEDS: Fluticasone-Salmeterol 232-14 MCG Powder Inhalent INH SCH (07:19)
[2019-10-24] MEDS: Glycopyrrolate 15.6 MCG Cap.W.Dev Kit of 6 IH SCH (07:19)
[2019-10-24] MEDS: Levalbuterol HCl 0.63 MG/3 ML Neb NEB SCH ×2 (07:19→10:39)
[2019-10-24] MEDS: Amphetamine/Dextroamphetamine Salts 10 MG Tab PO SCH (07:25)
[2019-10-24] MEDS ORDERED: Cyanocobalamin (Vitamin B12) 1,000 MCG/ML SDV IM ONE (09:00)
[2019-10-24] MEDS: ARIPiprazole 10 MG Tab PO SCH (09:12)
[2019-10-24] MEDS: lamoTRIgine 100 MG Tab PO SCH (09:12)
[2019-10-24] MEDS: Celecoxib 200 MG Cap PO SCH (09:12)
[2019-10-24] MEDS: SCOPOLAMINE PATCH CHECK TOP SCH (09:13)
[2019-10-24] MEDS: Sertraline 25 MG Tab PO SCH (09:16)
--- NOTE | 2019-10-24 09:16 | DISCH ---
ADMISSION DIAGNOSES: 1. Gastroesophageal reflux disease refractory to medical management. 2. Diabetic gastroparesis. 3. Type 2 diabetes mellitus. 4. Morbid obesity, BMI 37.4. 5. Moderate persistent asthma. 6. Connective tissue disease. 7. Schizoaffective disorder, bipolar type. 8. Nicotine addiction. 9. Obstructive sleep apnea. 10.Fibromyalgia. 11.Chronic right shoulder pain. 12.Chronic bilateral thoracic back pain. 13.Chronic left-sided low back pain. 14.Osteoarthritis of the left acromioclavicular joint. 15.Serrated adenoma of colon. DISCHARGE DIAGNOSES: Diagnostic laparoscopy with: 1. Partial gastrectomy with Diane-en-Y gastrojejunostomy. 2. Repair of paraesophageal diaphragmatic hernia. 3. Excision of mediastinal lipoma. 4. Needle liver biopsy. POSTOPERATIVE DIAGNOSES: 1. Paraesophageal diaphragmatic hernia with gastroesophageal reflux disease, refractory to medical management. 2. Diabetic gastroparesis. 3. Marked hepatomegaly. 4. Mediastinal lipoma. 5. Date of surgery: 10/22/2019. Surgeon: Curtis Hennessy MD. HISTORY: Wendi Slater is a pleasant 38-year-old female with severe gastroesophageal reflux disease refractory to medical management and diabetic gastroparesis. After preoperative evaluation and discussion of possible risks and possible complications, she wished to proceed with surgical procedure. HOSPITAL COURSE: Wendi had her surgery on 10/22/2019. She had no operative complications. On postoperative day #1, her upper GI was normal and she was started on a step 2 gastric bypass diet and her home medications. She had dietary instruction, vitamin B12 injection. Her activity was good, oral intake adequate, pain controlled, and she was able to be discharged to home on postoperative day #2. PHYSICAL EXAMINATION: GENERAL: Wendi Slater is a 38-year-old female, alert, orientated. VITAL SIGNS: Height 5 feet 6 inches, weight is 232 pounds, BMI is 37.4. TPR is 96.7; 86; 16; blood pressure is 115/69. HEENT: Negative. NECK: Supple. HEART: Regular rate and rhythm. LUNGS: Clear. ABDOMEN: Trocar sites look good. Sutures intact. 4 x 4 over SACHA drain site will be placed after the SACHA drain is removed. Abdominal binder is on. EXTREMITIES: Without peripheral edema. DISPOSITION: Discharged to home. CONDITION: Stable and improving. FOLLOWUP APPOINTMENT: With Shruthi Hernandez PA-C, on 11/01/2019 at 8:30 a.m. HOME MEDICATIONS: 1. Tylenol 1000 mg every 8 hours p.r.n. pain. 2. Celebrex 200 mg oral twice daily for 2 weeks. 3. Zofran ODT 4 mg every 4 hours p.r.n. nausea, #30. 4. Oxycodone 5 mg oral q.6 hours p.r.n. pain, #28. 5. To resume home medications of: a. Aripiprazole 30 mg oral daily. b. Adderall XR 20 mg oral 3 times daily. c. Voltaren 1% gel apply topical as directed p.r.n. pain. d. Advair 500/50 1 inhalation daily. e. Atrovent 0.06% nasal spray 2 sprays in each nostril 3 times daily. f. Levalbuterol tartrate 2 puffs inhalation every 4 hours. g. Singulair 10 mg oral daily. h. Omeprazole 40 mg oral daily. i. Pravastatin 10 mg oral daily. j. Sertraline 25 mg oral daily. k. Spiriva HandiHaler 18 mcg mg inhalation daily. l. Lamotrigine 300 mg oral daily. m. Continue Levogastrol. n. Robaxin 500 mg 3 times a day p.r.n. muscle spasm. o. Discontinue taking metformin and tramadol. DIET: Step 2 gastric bypass diet for 2 weeks until Tuesday11/05/2019. ACTIVITY AFTER DISCHARGE: No lifting greater than 10 pounds for 2 weeks. Other activity: Walk at least 6 times daily inside your home. Driving: Do not drive for 1 week. Shower/bathing: May shower. DISCHARGE INSTRUCTIONS: Notify provider if any fever, increased pain, nausea, or vomiting. Wound incision care; keep site clean and dry. Wear abdominal binder for 2 weeks and then as tolerated. SPECIAL INSTRUCTION: Use incentive spirometer 10 times every hour while awake for 1 week. Check blood sugars 3 times daily, write them down and bring record of blood sugars to clinic appointment.
--- NOTE | 2019-10-29 09:34 | OR ---
DATE OF PROCEDURE: 10/22/2019 SURGEON: Curtis Hennessy MD PREOPERATIVE DIAGNOSIS: Severe gastroesophageal reflux disease refractory to medical management associated with diabetic gastroparesis. POSTOPERATIVE DIAGNOSES: 1. Severe gastroesophageal reflux disease refractory to medical management associated with diabetic gastroparesis. 2. Marked hepatomegaly. 3. Mediastinal lipoma. OPERATIVE PROCEDURES: Diagnostic laparoscopy with: 1. Partial proximal gastrectomy with Diane-en-Y gastrojejunostomy (70302). 2. Repair of paraesophageal diaphragmatic hernia (71289). 3. Excision of mediastinal lipoma (81727). 4. Needle biopsy of left lobe of liver (62328). ANESTHESIA: General. AIRPLANE PATROLLER: Shruthi Hernandez PA-C INDICATIONS FOR PROCEDURE: This is a 38-year-old presenting with severe gastroesophageal reflux disease being present despite b.i.d. proton pump inhibitor use. An endoscopy done last week showed active gastroesophageal reflux disease with attendant gastroparesis with a gastric bezoar being present in the stomach consistent with diabetic gastroparesis. Given this, the indicated procedure for correction of reflux would be proximal partial gastrectomy with Diane-en-Y reconstruction which would divert bile and acid away from this area of the esophagogastric junction as well as bypass the poorly functional stomach, where as a standard Hillary fundoplication would result in likely severe postprandial bloating due to the relatively poor functioning of the stomach. Potential risks of the procedure including bleeding, infection, leaks from various GI tract closures, problems with bowel obstruction over time, as well as possibility of cardiopulmonary, septic, or hemorrhagic complications leading to were discussed, and the patient wishes to proceed. DETAILS OF PROCEDURE: The patient was taken to the operating room and placed in a supine position. After general endotracheal anesthesia was induced, she was converted to a lithotomy position and abdomen prepped and draped. 15 cm inferior and 5 cm left of the xiphoid process, transverse incision was made and peritoneal cavity entered under direct vision with an Optiview trocar, inflated to 15 mmHg pressure with CO2. Laparoscope was then reinserted. No underlying trocar insertion site injuries were seen. Following this, 5 additional trocars were placed across the upper and mid abdomen and bilateral transversus abdominis plane blocks were placed. The liver was noted to be markedly enlarged and grossly fatty infiltrated and associated with obesity and diabetes, and Gucci-Cut needle biopsies of left lobe of the liver were obtained and sent for histologic evaluation. Minimal bleeding from the biopsy sites was controlled with electrocautery. At this point, the omentum was divided in the midline up to the level of the transverse colon. This allowed identification of the small bowel at the ligament of Treitz. Small bowel was then traced out 200 cm distal to that point, where it was divided transversely with a XIN stapler. Small bowel was then traced out additional 200 cm where a [id number] enteroenterostomy was accomplished with an internal firing of the Endo-XIN 60 mm stapler, common opening was closed transversely with the same stapler, angles anastomosed and mesenteric defect approximated with some 0 Ethibond stitch along with 4 mL of fibrin sealant. The divided end of the Diane limb was then mobilized in an antecolic position up to the level of the gastroesophageal junction without tension. The liver was then retracted anteriorly. The patient was noted to have as expected a moderate-sized hiatal hernia. This had a major paraesophageal component to it with prolapse of the gastric fundus, perigastric fat, and a tongue of omentum in a plane anterior to the course of the esophagus. This was reduced and the peritoneum overlying was incised and reflected downward. During the course of dissection, a mediastinal lipoma was encountered, which was excised to facilitate more adequate repair of the crura. The crural repair anteriorly was then accomplished with some 0 Ethibond sutures reinforced with PTFE pledgets. The gastrointestinal catheter was inflated with 15 mL and pulled up snugly against the EG junction. Gastric wall over the apex balloon was then marked with electrocautery and balloon catheter deflated and pulled up from the esophagus. The lesser omental tissue adjacent to the gastric cardia was incised and dissection . The stomach was initially divided with the XIN stapler at the level of the cauterized lara on the gastric cardia. Pouch was then completed with additional firings to the angle of His. Some of the more proximal stomach distal to that was then excised to facilitate some distancing from the previous staple line and avoidance of area of ischemia that was present after the initial staple line was present. This gastric specimen was then sent for histologic evaluation. The anvil of a 25 mm EEA stapler was passed through the mouth by orogastric tube where a cauterized lara in the gastric pouch was constructed allowing the anvil to be pulled down to within the gastric pouch. Divided end of the Diane limb was then opened and main body of the EEA stapler was passed several centimeters into the lumen of small bowel, brought up the anvil and united with it, thus creating the gastrojejunostomy. Upon removal of the stapler, double donuts of mucosa were noted within it. Small bowel was closed off with a vascular staple line. Gastrojejunostomy was reinforced with 3-0 Vicryl seromuscular stitch along with fibrin sealant. A leak test was accomplished with injection of 120 mL of air in the gastric pouch while it was submerged with cefoxitin-containing saline solution. No leaks were identified. A single Gabriel-Vasquez drain was then placed through the left lateral trocar site and positioned adjacent to the gastrojejunostomy. Trocars were removed and peritoneal cavity deflated. Incisions were closed with 4-0 Vicryl skin stitch, which was also used to fix the drain, and the patient was taken to the recovery room in satisfactory condition. Physician administrative sales assistant, Shruthi Hernandez, played an essential role in assisting in this case helping to position the patient, retract structures as needed, as well as suturing and cutting sutures when indicated. Her presence improved patient safety and decreased the operative time. Curtis Hennessy MD /[id number]
== END 2019-10-24 11:34 | disposition home or self-care (01) | DRG 328 ==
LOC: EDSTATUS 08:00 → JP.SDS 09:01 → JP.SDSSCHI 09:01 → JP.MS 12:30
PROVIDERS: ADMIT Surgery; ATTEND Surgery
PROC: 0D164ZA Bypass Stomach to Jejunum, Percutaneous Endoscopic Approach (ICD-10-PCS; principal; 2019-10-22)
PROC: 0FB24ZX Excision of Left Lobe Liver, Percutaneous Endoscopic Approach, Diagnostic (ICD-10-PCS; 2019-10-22)
PROC: 0DB64ZZ Excision of Stomach, Percutaneous Endoscopic Approach (ICD-10-PCS; 2019-10-22)
PROC: 0JB63ZZ Excision of Chest Subcutaneous Tissue and Fascia, Percutaneous Approach (ICD-10-PCS; 2019-10-22)
DX: K21.9 Gastro-esophageal reflux disease without esophagitis (principal); E11.43 Type 2 diabetes mellitus with diabetic autonomic (poly)neuropathy; K31.84 Gastroparesis; E66.01 Morbid (severe) obesity due to excess calories; F25.0 Schizoaffective disorder, bipolar type; G47.33 Obstructive sleep apnea (adult) (pediatric); M79.7 Fibromyalgia; M19.90 Unspecified osteoarthritis, unspecified site; M54.5 Low back pain; M54.6 Pain in thoracic spine; G89.29 Other chronic pain; J45.40 Moderate persistent asthma, uncomplicated; D17.1 Benign lipomatous neoplasm of skin and subcutaneous tissue of trunk; K44.9 Diaphragmatic hernia without obstruction or gangrene; D12.6 Benign neoplasm of colon, unspecified; R16.0 Hepatomegaly, not elsewhere classified; F17.210 Nicotine dependence, cigarettes, uncomplicated; Z68.37 Body mass index [BMI] 37.0-37.9, adult; Z79.84 Long term (current) use of oral hypoglycemic drugs; Z79.899 Other long term (current) drug therapy
CPT/HCPCS: 36415; 74240; 74240-26; 81025; 82962; 86850; 86900; 86901; 88304; 88307; 88313; 93005; 94640; A9270-GY; C9113; J0171; J0330; J0694; J1100; J1170; J1644; J1815; J2405; J2704; J2710; J2765; J2795; J3010; J3410; J3411; J3420; J3475; J3490; J7030; J7050; J7120; J7121; Q9967

== ENCOUNTER 2020-01-31 09:55 | Day surgery (SDC) | payer MEDICARE, MEDICAID ==
[2020-01-31] MEDS ORDERED: Lactated Ringers 1,000 ML IV SCH (10:30)
[2020-01-31] MEDS ORDERED: Cyanocobalamin (Vitamin B12) 1,000 MCG/ML SDV IM ONE (11:00)
[2020-01-31] MEDS ORDERED: Glycopyrrolate 0.2 MG/ML 2 ML SDV IVPUSH ONE (11:00)
[2020-01-31] MEDS ORDERED: MVI, Adult with Vitamin K 10 ML, Thiamine 200 MG, Chromium/Copper/Mang/Selen/Zn 1 ML in... IV ONE ×4 (12:00)
[2020-01-31] MEDS ORDERED: Midazolam 1 MG/ML 2 ML SDV ONE (12:10)
[2020-01-31] MEDS ORDERED: Propofol 200 MG/20 ML SDV ONE (12:10)
[2020-01-31] MEDS ORDERED: fentaNYL 100 MCG/2 ML SDV ONE (12:10)
[2020-01-31] MEDS ORDERED: Pantoprazole 40 MG Vial IVPUSH ONE (13:17)
--- NOTE | 2020-02-04 12:22 | OR ---
DATE OF PROCEDURE: 01/31/2020 SURGEON: Curtis Hennessy MD PREOPERATIVE DIAGNOSIS: Episodes of black stool, status post Diane-en-Y gastric bypass. POSTOPERATIVE DIAGNOSIS: Focal erosions in the gastric pouch and small marginal ulcer at gastrojejunostomy. OPERATIVE PROCEDURE: Upper gastrointestinal endoscopy with biopsies of gastric pouch for CLOtest. ANESTHESIA: IV sedation. INDICATIONS FOR PROCEDURE: This is a 39-year-old female status post Diane-en-Y gastric bypass, presenting with some black stools as well as sense of feeling weak. The plan is to proceed with upper GI endoscopy with biopsies as indicated. Potential risks of the procedure including bleeding and perforation were discussed, and the patient wishes to proceed. DETAILS OF PROCEDURE: The patient was taken to the operating room and then placed in a left lateral decubitus position. IV sedation was administered, after which the upper GI endoscope was passed orally through the length of the esophagus and into the gastric pouch, from there through the gastrojejunostomy roughly 20 cm into the Diane limb. Findings included normal hypopharynx, larynx, upper esophageal sphincter, and esophageal body. At the EG junction, there were no significant abnormalities. Within the gastric pouch, there were some small erosions that had some blood on them and there was a small marginal ulcer anteriorly directly adjacent to the gastrojejunostomy on the jejunal side of the anastomosis measuring around 1 cm and this was covered with some old-appearing blood as well, but no active bleeding was seen. Beyond that, the Diane limb was otherwise unremarkable. At this point, biopsies were obtained from the gastric pouch, sent for CLOtest for H pylori. Minimal bleeding from biopsy sites was seen and the procedure was then concluded. At this point, we will maximize the antacid treatment regimen. The patient has been on omeprazole 40 mg b.i.d. for the last several days. We will continue that and also give her a dose of Protonix IV in the recovery room and add Pepcid 20 mg b.i.d. and the patient will be set up to see Shruthi Hernandez on 02/11/2020 with a followup CBC at that time. Curtis Hennessy MD /[id number]
== END 2020-01-31 14:14 | disposition home or self-care (01) ==
LOC: JP.SDS 09:55
PROVIDERS: ATTEND Surgery
DX: K25.9 Gastric ulcer, unspecified as acute or chronic, without hemorrhage or perforation (principal); K28.9 Gastrojejunal ulcer, unspecified as acute or chronic, without hemorrhage or perforation; G47.33 Obstructive sleep apnea (adult) (pediatric); F17.200 Nicotine dependence, unspecified, uncomplicated; E11.9 Type 2 diabetes mellitus without complications; Z98.84 Bariatric surgery status
CPT/HCPCS: 43239; 87081; C9113; J2250; J2704; J3010; J3411; J3420; J3490; J7120

== ENCOUNTER 2020-02-05 10:29 | Emergency (ER) | payer MEDICARE, MEDICAID ==
[2020-02-05] MEDS ORDERED: Levalbuterol HCl 1.25 MG/3 ML Neb NEB ONE (11:15)
--- NOTE | 2020-02-05 11:22 | EDM.PDOC ---
ED HPI GENERAL MEDICAL PROBLEM - General Chief Complaint: General Stated Complaint: MEDICATION ALLERGY, STOMACH ULCER Time Seen by Provider: 02/05/20 11:00 Source of Information: Reports: Patient, Old Records, RN History Limitations: Reports: No Limitations - History of Present Illness INITIAL COMMENTS - FREE TEXT/NARRATIVE: 39 yo female smoker presents with burning in her lungs with a productive cough. No fever or SOB. Also, had a "partial Diane-N-Y" in October and now is experiencing some distention and did vomit once last night. Called Shruthi Hernandez recently and was given an adjustment in her diet without relief. Stools seem to alternate between hard and loose, its been harder since yesterday to have a BM. Called the clinic and was told to come to the ER. Onset: Gradual Duration: Day(s):, Getting Worse Location: Reports: Chest, Abdomen Quality: Reports: Burning (chest), Pressure (abdomen) Severity: Moderate Improves with: Reports: None (abdomen or chest) Worsens with: Reports: Breathing (chest) Context: Reports: Other (See HPI) Associated Symptoms: Reports: Cough (some colored sputum), Nausea/Vomiting (x one last evening.). Denies: Fever/Chills, Shortness of Breath Treatments WATER RESOURCE CONSULTANT: Reports: Other (see below) (none) Abdomen Pain Score (Numeric/FACES): 7 lungs Pain Score (Numeric/FACES): 7 - Related Data Allergies Allergy/AdvReac Type Severity Reaction Status Date / Time albuterol AdvReac Tachycardia Verified 02/05/20 10:50 gabapentin AdvReac Confusion Verified 02/05/20 10:50 hydrocodone AdvReac Irritabilit Verified 02/05/20 10:50 y pregabalin [From Lyrica] AdvReac Confusion Verified 02/05/20 10:50 Home Meds: Home Meds ARIPiprazole [Aripiprazole] 30 mg PO BID 06/08/18 [History] Levalbuterol Tartrate [Levalbuterol Tartrate Hfa] 2 puff IN Q4H PRN 06/08/18 [History] Montelukast [Singulair] 10 mg PO DAILY 06/08/18 [History] Omeprazole 40 mg PO BID 06/08/18 [History] Pravastatin Sodium 10 mg PO DAILY 06/08/18 [History] lamoTRIgine 200 mg PO BID 06/08/18 [History] Amphetamine/Dextroamphetamine [Adderall XR] 30 mg PO BID 05/18/19 [History] Diclofenac Sodium [Voltaren 1% Gel] 1 applic TOP ASDIRECTED PRN 05/18/19 [History] Fluticasone/Salmeterol [Advair 500-50] 1 inh INH BID PRN 05/18/19 [History] Tiotropium [Spiriva HandiHaler] 18 mcg INH DAILY PRN 05/18/19 [History] Ipratropium [Atrovent 0.06% Nasal [place]] 2 sprays NASBOTH TID PRN 10/17/19 [Hist ory] Sertraline HCl 50 mg PO DAILY 10/17/19 [History] levonorgestreL [Kyleena] 1 each IY ASDIRECTED 10/17/19 [History] Calcium Citrate/Vitamin D3 [Calcium Citrate - Vit D Tablet] 1 each PO BID 01/28/20 [History] Cyanocobalamin (Vitamin B-12) [Vitamin B-12] 1,000 mcg SL DAILY 01/28/20 [History] Multiple Vitamin Childrens 1 tab PO DAILY 01/28/20 [History] Thiamine [Vitamin B-1] 100 mg PO DAILY 01/28/20 [History] Vitamin B Complex [B Complex] 1 each PO DAILY 01/28/20 [History] diazePAM [Valium] 5 mg PO QID PRN 01/28/20 [History] tiZANidine HCl [Zanaflex] 4 mg PO TID 01/28/20 [History] traMADol [Ultram] 50 mg PO Q8H PRN 01/28/20 [History] predniSONE [Prednisone] 10 mg PO ASDIRECTED #20 tablet 02/05/20 [Rx] Past Medical History HEENT History: Reports: Impaired Vision, Other (See Below) Other HEENT History: autoimmune disorder affecting sinuses, chronic dry eyes with nasal drainage Cardiovascular History: Reports: Other (See Below) Other Cardiovascular History: tachycardia Respiratory History: Reports: Asthma, Pneumonia, Recurrent, Sleep Apnea Gastrointestinal History: Reports: Diverticulosis, GERD, Hiatal Hernia, Irritable Bowel Syndrome, PUD, Other (See Below) Other Gastrointestinal History: small intestinal bacterial overgrowth, serrated adenoma of colon Genitourinary History: Reports: None 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: Polycystic Ovaries, , Other (See Below) Other CEILING INSTALLER History: IUD Musculoskeletal History: Reports: Back Pain, Chronic, Connective Tissue Disease, Fibromyalgia, Osteoarthritis, Other (See Below) Other Musculoskeletal History: chronic bilat thoracic back pain, chronic right shoulder pain, multisystem atrophy Neurological History: Reports: Concussion, Headaches, Chronic, Migraines, Seizure, Vertigo, Other (See Below) Other Neuro History: TBI; x1 seizure in 2010, no problems since Psychiatric History: Reports: Anxiety, Bipolar, Depression, Suicidal Ideation, Other (See Below) Other Psychiatric History: insomnia Endocrine/Metabolic History: Reports: Diabetes, Type II, Obesity/BMI 30+ Hematologic History: Reports: Anemia Oncologic (Cancer) History: Reports: Other (See Below) Other Oncologic History: serrated adenoma of colon Dermatologic History: Reports: Cellulitis - Infectious Disease History Infectious Disease History: Reports: None Other Infectious Disease History: history of MRSA in a wound from shaving in 2010; - Past Surgical History HEENT Surgical History: Reports: Other (See Below) Other HEENT Surgeries/Procedures: lanced cyst behind ear Cardiovascular Surgical History: Reports: None Respiratory Surgical History: Reports: None GI Surgical History: Reports: Bariatric Procedure, Colonoscopy, EGD Other GI Surgeries/Procedures: RNY October 22 2019 Female Surgical History: Reports: Other (See Below) Other Female Surgeries/Procedures: rectal fistula Endocrine Surgical History: Reports: None Neurological Surgical History: Reports: None Musculoskeletal Surgical History: Reports: Shoulder Surgery Oncologic Surgical History: Reports: None Dermatological Surgical History: Reports: None Social & Family History - Family History Family Medical History: Noncontributory - Tobacco Use Smoking Status *Q: Current Every Day Smoker Years of Tobacco use: 22 Packs/Tins Daily: 1 - Caffeine Use Caffeine Use: Reports: None - Recreational Drug Use Recreational Drug Use: No ED ROS GENERAL - Review of Systems Review Of Systems: See Below Constitutional: Denies: Fever, Chills HEENT: Reports: Rhinitis (clear), Other (post-nasal drip) Respiratory: Reports: Wheezing, Cough, Sputum. Denies: Shortness of Breath, Pleuritic Chest Pain, Hemoptysis Cardiovascular: Reports: No Symptoms Endocrine: Reports: No Symptoms GI/Abdominal: Reports: Abdominal Pain, Constipation (intermittently), Diarrhea (intermittently), Distension, Nausea, Vomiting (x one). Denies: Black Stool, Hematemesis, Hematochezia, Melena : Reports: No Symptoms Musculoskeletal: Reports: No Symptoms Skin: Reports: No Symptoms ED EXAM, GENERAL - Physical Exam Exam: See Below Exam Limited By: No Limitations General Appearance: Alert, WD/WN, No Apparent Distress Eye Exam: Bilateral Eye: Normal Inspection Ears: Normal External Exam, Normal Canal, Hearing Grossly Normal, Normal TMs Ear Exam: Bilateral Ear: Auricle Normal, Canal Normal, TM normal Nose: Clear Rhinorrhea, Other (congestion present) Throat/Mouth: Normal Inspection, Normal Lips, Normal Oropharynx, Normal Voice, No Airway Compromise Head: Atraumatic, Normocephalic Neck: Normal Inspection Respiratory/Chest: No Respiratory Distress, Wheezing. No: Lungs Clear, Normal Breath Sounds, No Accessory Muscle Use, Respiratory Distress, Rhonchi Cardiovascular: Regular Rate, Rhythm, No Edema GI/Abdominal: Distended, Tender (mild diffuse), Abnormal Bowel Sounds (increased). No: Normal Bowel Sounds, Soft, Non-Tender, No Distention, Guarding, Rigid, Rebound Back Exam: Normal Inspection Extremities: Normal Inspection, Normal Range of Motion, Non-Tender, No Pedal Edema Neurological: Alert, Oriented, CN II-XII Intact, Normal Cognition, No Motor/Sensory Deficits Psychiatric: Normal Affect, Normal Mood Skin Exam: Warm, Dry, Intact, Normal Color, No Rash Course - Vital Signs Last Recorded V/S: Last Vital Signs Temp 35.7 C L 02/05/20 10:42 Pulse 96 02/05/20 10:42 Resp 18 02/05/20 10:42 BP 112/69 02/05/20 10:42 Pulse Ox 97 02/05/20 10:42 - Orders/Labs/Meds Orders: Active Orders 24 hr Category Date Time Status RT Aerosol Therapy [RC] ASDIRECTED Care 02/05/20 11:15 Active Abdomen 1V Upright [CR] Stat Exams 02/05/20 11:15 Ordered Meds: Medications Discontinued Medications Generic Name Dose Route Start Last Admin Trade Name Freq PRN Reason Stop Dose Admin Levalbuterol HCl 1.25 mg 02/05/20 11:15 02/05/20 11:49 Xopenex NEB 02/05/20 11:16 1.25 mg ONETIME ONE Administration - Radiology Interpretation Free Text/Narrative:: upright abdominal X-ray-some stool in R ascending colon, no air fluid levels Departure - Departure Time of Disposition: 12:30 Disposition: Home, Self-Care 01 Condition: Fair Clinical Impression: Bronchospasm Abdominal pain Qualifiers: Abdominal location: unspecified location Qualified Code(s): R10.9 - Unspecified abdominal pain - Discharge Information *PRESCRIPTION DRUG MONITORING PROGRAM REVIEWED*: No *COPY OF PRESCRIPTION DRUG MONITORING REPORT IN PATIENT ALLEN: No Prescriptions: predniSONE [Prednisone] 10 mg PO ASDIRECTED #20 tablet Referrals: Lelo Camacho MD [Primary Care Provider] - Forms: ED Department Discharge Additional Instructions: Take prednisone as directed. Hold your Advair until you are done with the prednisone. Continue your other medications as currently. NO SMOKING. F/U with Shruthi Hernandez if your abdominal symptoms don't improve soon. Return here as needed. Sepsis Event Note (ED) - Evaluation Sepsis Screening Result: No Definite Risk - Focused Exam Vital Signs: Vital Signs Temp Pulse Resp BP Pulse Ox 02/05/20 10:42 35.7 C L 96 18 112/69 97 - My Orders Last 24 Hours: My Active Orders 02/05/20 11:15 RT Aerosol Therapy [RC] ASDIRECTED Abdomen 1V Upright [CR] Stat - Assessment/Plan Last 24 Hours: My Active Orders 02/05/20 11:15 RT Aerosol Therapy [RC] ASDIRECTED Abdomen 1V Upright [CR] Stat
--- NOTE | 2020-02-05 13:24 | CR ---
Abdomen 1V Upright CLINICAL HISTORY: Abdominal pain and distention, vomiting FINDINGS: There are scattered air-filled loops of small bowel in a nonspecific pattern. This appears similar to the 90 02/03/2020 study. There is gas and feces in the colon. Patient has an IUD the pelvis left of midline. Patient has had previous bariatric surgery. IMPRESSION: Nonspecific intestinal gas pattern
== END 2020-02-05 12:42 | disposition home or self-care (01) ==
LOC: JP.ED 10:29
DX: J98.01 Acute bronchospasm (principal); R10.84 Generalized abdominal pain; F17.210 Nicotine dependence, cigarettes, uncomplicated; F31.9 Bipolar disorder, unspecified; F41.9 Anxiety disorder, unspecified; E11.9 Type 2 diabetes mellitus without complications; K21.9 Gastro-esophageal reflux disease without esophagitis; R56.9 Unspecified convulsions; E66.9 Obesity, unspecified; Z68.28 Body mass index [BMI] 28.0-28.9, adult; Z88.8 Allergy status to other drugs, medicaments and biological substances; Z88.5 Allergy status to narcotic agent; Z79.899 Other long term (current) drug therapy
CPT/HCPCS: 74018; 94640; 99284; J7612

== ENCOUNTER 2020-05-02 06:38 | Day surgery (SDC) | payer MEDICARE, MEDICAID ==
[~2020-05-02 06:38] MED LIST: Acetaminophen 500 MG Tab PO ONE
[2020-05-02] MEDS ORDERED: Propofol 200 MG/20 ML SDV ONE (07:05)
[2020-05-02] MEDS ORDERED: Dexamethasone 4 MG/ML SDV ONE (07:05)
[2020-05-02] MEDS ORDERED: fentaNYL 250 MCG/5 ML SDV ONE ×3 (07:05→09:20)
[2020-05-02] MEDS ORDERED: Glycopyrrolate 0.2 MG/ML 5 ML MDV ONE (07:05)
[2020-05-02] MEDS ORDERED: Ondansetron 4 MG/2 ML SDV ONE (07:05)
[2020-05-02] MEDS ORDERED: Rocuronium 50 MG/5 ML Vial ONE (07:05)
[2020-05-02] MEDS ORDERED: Neostigmine Methylsulfate 1 MG/ML 5 ML Syringe ONE (07:05)
[2020-05-02] MEDS ORDERED: Bupivacaine 0.5%/EPINEPHrine 1:200,000 50 ML MDV ONE (07:14)
[2020-05-02] MEDS: Dextrose 5%-Lactated Ringers 1,000 ML IV SCH ×2 (07:55→18:23)
[2020-05-02] MEDS: cefOXitin 2 GM in Sodium Chloride 0.9% 50 ML IV ONE ×2 (08:30→14:28)
[2020-05-02] MEDS ORDERED: Ropivacaine 35 ML, dexAMETHasone 8 MG, EPINEPHrine 0.4 MG, Sodium Chloride 0.9% 42.6 ML NERVRT SCH ×4 (08:45)
[2020-05-02] MEDS ORDERED: Ketamine 500 MG/5 ML MDV IV SCH (08:45)
[2020-05-02] MEDS ORDERED: Ketamine 50 MG in Sodium Chloride 0.9% 49.5 ML IV SCH (08:45)
[2020-05-02] MEDS ORDERED: oxyCODONE 5 MG Tab PO PRN (10:45)
[2020-05-02] MEDS ORDERED: Ipratropium 0.02% 0.5 MG/2.5 ML Neb Soln INH PRN (10:50)
[2020-05-02] MEDS ORDERED: Ipratropium 0.06% Nasal Spray 15 ML Bottle NASBOTH PRN (10:52)
[2020-05-02] MEDS ORDERED: HYDROmorphone 0.5 MG/0.5 ML Syringe IVPUSH PRN (11:00)
[2020-05-02] MEDS ORDERED: Ondansetron 4 MG/2 ML SDV IVPUSH PRN (11:00)
[2020-05-02] MEDS ORDERED: HYDROmorphone 1 MG/ML Syringe IV PRN (11:00)
[2020-05-02] MEDS ORDERED: Pantoprazole 40 MG Vial IVPUSH SCH (12:00)
[2020-05-02] MEDS: lamoTRIgine 100 MG Tab PO SCH ×2 (13:12→21:05)
[2020-05-02] MEDS: ARIPiprazole 10 MG Tab PO SCH ×2 (13:13→21:05)
[2020-05-02] MEDS: Sertraline 50 MG Tab PO SCH ×2 (13:13→21:06)
[2020-05-02] MEDS ORDERED: NICOTINE PO PRN (13:25)
[2020-05-02] MEDS: cefOXitin 2 GM in Sodium Chloride 0.9% 50 ML IV SCH ×2 (14:47→20:05)
[2020-05-02] MEDS: Acetaminophen/oxyCODONE 325-5 MG Tab PO PRN ×2 (14:48→18:22)
[2020-05-02] MEDS: Amphetamine/Dextroamphetamine Salts 10 MG Tab PO SCH (14:48)
[2020-05-02] MEDS ORDERED: Pravastatin 20 MG Tab PO SCH (21:00)
[2020-05-02] MEDS ORDERED: Montelukast 10 MG Tab PO SCH (21:00)
[2020-05-02] MEDS: RESTASIS EYEBOTH SCH (21:07)
[2020-05-03] MEDS: cefOXitin 2 GM in Sodium Chloride 0.9% 50 ML IV SCH (02:53)
[2020-05-03] MEDS: Dextrose 5%-Lactated Ringers 1,000 ML IV SCH (02:54)
[2020-05-03] MEDS: Acetaminophen/oxyCODONE 325-5 MG Tab PO PRN ×2 (02:58→08:12)
[2020-05-03] MEDS: lamoTRIgine 100 MG Tab PO SCH (08:14)
[2020-05-03] MEDS: ARIPiprazole 10 MG Tab PO SCH (08:14)
[2020-05-03] MEDS: Sertraline 50 MG Tab PO SCH (08:14)
[2020-05-03] MEDS: RESTASIS EYEBOTH SCH (08:17)
[2020-05-03] MEDS: Amphetamine/Dextroamphetamine Salts 10 MG Tab PO SCH (08:20)
--- NOTE | 2020-05-05 09:31 | DISCH ---
ADMISSION DIAGNOSIS: Biliary dyskinesia. DISCHARGE DIAGNOSIS: Laparoscopic cholecystectomy. DATE OF PROCEDURE: 05/02/2020. SURGEON: Curtis Hennessy MD POSTOPERATIVE DIAGNOSES: 1. Biliary dyskinesia. 2. Cholelithiasis and sludge. HISTORY: Wendi Slater is a 39-year-old female with abdominal pain with a low ejection fraction. After preoperative evaluation and discussion of possible risks and possible complications, she wished to proceed with surgical procedure. HOSPITAL COURSE: Wendi had her surgery on 05/02/2020. She had no operative complications. On postoperative day 1, she was able to be discharged to home. PHYSICAL EXAMINATION: GENERAL: Wendi Slater is a 39-year-old female. VITAL SIGNS: Height 5 feet 6 inches; weight is 153 pounds; TPR is 95.2, 58, and 16; and blood pressure 98/54. HEENT: Negative. NECK: Supple. HEART: Regular rate and rhythm. LUNGS: Clear. ABDOMEN: Dressing is dry and intact. SACHA drain will be discontinued, and it is draining a light serosanguineous drainage. EXTREMITIES: Without peripheral edema. DISPOSITION: Discharged to home. CONDITION: Stable and improving. FOLLOWUP APPOINTMENT: 05/14/2020 at 10 a.m. HOME MEDICATIONS: Percocet 5/325 mg 1 tablet every 6 hours p.r.n. pain #28. She is to resume her home medications and vitamins and supplements. DIET: Usual diet as tolerated, drink 8 to 10 glasses of water a day. ACTIVITY: As tolerated. No lifting over 10 pounds for 2 weeks. DRIVING: Do not drive for 1 week. DISCHARGE INSTRUCTIONS: Notify provider if any fever, increased pain, swelling, redness, drainage, nausea, or vomiting. Keep the site clean and dry. Wear abdominal binder for 2 weeks and as tolerated. SPECIAL INSTRUCTION: Use incentive spirometer 10 times every hour while awake for 1 week. /[id number]
--- NOTE | 2020-05-11 10:04 | OR ---
DATE OF PROCEDURE: 05/02/2020 SURGEON: Curtis Hennessy MD PREOPERATIVE DIAGNOSIS: Biliary dyskinesia. POSTOPERATIVE DIAGNOSIS: Biliary dyskinesia associated with small stones and gallbladder sludge. PROCEDURE: Laparoscopic cholecystectomy (52286). ANESTHESIA: General. VP DESIGN: Shruthi Hernandez PA-C INDICATIONS FOR PROCEDURE: This is a 39-year-old presenting with recurrent episodes of right upper quadrant pain. A CCK-stimulated HIDA scan showed a below normal ejection fraction with the CCK injection causing reproduction of the patient's symptoms. Given this, the patient is to undergo a laparoscopic cholecystectomy. Potential risks of procedure including bleeding, infection, injury to underlying viscera, problems with stones migrating into the common bile duct requiring additional procedures for correction, possibility of persistent symptoms were all gone over and the patient wishes to proceed. DETAILS OF PROCEDURE: The patient was taken to the operating room and placed in a supine position. After general endotracheal anesthesia was induced, the abdomen was prepped and draped. A transverse epigastric incision was made and the peritoneal cavity entered under direct vision with an Optiview trocar and inflated to 15 mmHg pressure with CO2. Laparoscope was reinserted. No underlying trocar insertion site injuries were seen. Following this, a subumbilical transverse incision was made and peritoneal cavity entered with an Optiview trocar at that level and 1 additional 5 mm trocar was then placed in the right subcostal area. The gallbladder was noted to be somewhat edematous, particularly in the area of the cystohepatic triangle. It was retracted anterolaterally. Dissection with Harmonic scalpel began around the gallbladder neck and cystic duct junction. This was then carried down around the gallbladder neck and cystic duct junction until that area was well delineated along with the adjacent cystic artery. At that point, both structures were clipped 3 times proximally and once distally and divided. The gallbladder was dissected off the gallbladder bed using Harmonic scalpel. Upon removal of the gallbladder, it was noted to contain some small stones and sludge. At this point, no bleeding or other problems were noted. The drain was felt not to be necessary. The trocars were removed and the peritoneal cavity was deflated and the incisions at the 12 mm sites was closed with 0 Vicryl stitch and the skin with 4-0 Vicryl stitch. Prior to closure, bilateral transversus abdominis plane blocks were then placed. The patient was taken to the recovery room in satisfactory condition. Physician dental assistant, Shruthi Hernandez, played an essential role in assisting in this case, helping to position the patient, retracting structures as needed as well as suturing and cutting sutures when indicated. Her presence improved patient safety and decreased the operative time. Curtis Hennessy MD /[id number]
== END 2020-05-03 10:05 | disposition home or self-care (01) ==
LOC: JP.SDS 06:38 → JP.2SS 09:40 → JP.SDS 05-03 10:05
PROVIDERS: ATTEND Surgery
DX: K80.10 Calculus of gallbladder with chronic cholecystitis without obstruction (principal); K82.8 Other specified diseases of gallbladder; J45.909 Unspecified asthma, uncomplicated; G47.33 Obstructive sleep apnea (adult) (pediatric); K21.9 Gastro-esophageal reflux disease without esophagitis; F41.9 Anxiety disorder, unspecified; E78.5 Hyperlipidemia, unspecified; E11.40 Type 2 diabetes mellitus with diabetic neuropathy, unspecified; Z79.899 Other long term (current) drug therapy; Z88.8 Allergy status to other drugs, medicaments and biological substances; Z88.5 Allergy status to narcotic agent
CPT/HCPCS: 36415; 47562; 81025; 82247; 84075; 85025; 88304; A9270; C9113; J0171; J0694; J1100; J1170; J2405; J2704; J2710; J2795; J3010; J3490; J7050; J7121

== ENCOUNTER 2020-06-13 07:47 | Day surgery (SDC) | payer MEDICARE, MEDICAID ==
[~2020-06-13 07:47] MED LIST changes: -Acetaminophen 500 MG Tab PO ONE; +Dextrose 5%-Lactated Ringers 1,000 ML IV SCH; +Glycopyrrolate 0.2 MG/ML 2 ML SDV IVPUSH ONE
[2020-06-13] MEDS ORDERED: Propofol 200 MG/20 ML SDV ONE ×2 (08:04→10:52)
[2020-06-13] MEDS ORDERED: Dextrose 5%-Lactated Ringers 1,000 ML IV SCH (08:30)
[2020-06-13] MEDS ORDERED: Glycopyrrolate 0.2 MG/ML 2 ML SDV IVPUSH ONE (08:30)
[2020-06-13] MEDS ORDERED: Midazolam 1 MG/ML 2 ML SDV ONE (08:40)
[2020-06-13] MEDS ORDERED: fentaNYL 100 MCG/2 ML SDV ONE (08:40)
[2020-06-13] MEDS ORDERED: Pantoprazole 40 MG Vial IVPUSH ONE (11:30)
--- NOTE | 2020-06-23 09:30 | OR ---
DATE OF PROCEDURE: 06/13/2020 SURGEON: Curtis Hennessy MD PREOPERATIVE DIAGNOSES: 1. Nausea and vomiting status post Diane-en-Y gastric bypass. 2. History of anal fissure. 3. History of serrated adenomatous polyp of the colon. POSTOPERATIVE DIAGNOSES: 1. 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 2. Healing anal fissure. 3. History of serrated adenomatous polyp of colon without evident recurrence (relatively poor colon prep). OPERATIVE PROCEDURES: 1. Upper gastrointestinal endoscopy with biopsies of gastric pouch for CLOtest. 2. Flexible colonoscopy. ANESTHESIA: IV sedation. INDICATION FOR PROCEDURE: This is a 39-year-old female presenting with some reported nausea and vomiting. She is status post Diane-en-Y gastric bypass. She presently is on omeprazole 20 mg a day. She also has a history of recently diagnosed anal fissure and history of serrated adenoma of the colon and is to undergo colonoscopy with biopsies and/or polypectomy as indicated along with the upper GI endoscopy. Potential risks of the procedure including bleeding and perforation were discussed, and the patient wishes to proceed. DETAILS OF PROCEDURE: The patient was taken to the operating room and placed in a left lateral decubitus position. IV sedation was administered, after which the upper GI endoscope was passed orally through the length of the esophagus into the gastric pouch, through the gastrojejunostomy, roughly 20 cm into the Diane limb. Findings included normal esophagus and EG junction area. Within the gastric pouch, there was some diffuse edema and redness with some scattered erosions. The had some [id number]-[id number]-[id number] material on the surface. No active bleeding was seen. There was no stricturing at the gastrojejunostomy. The remaining visualized portion of the Diane limb was unremarkable. At this point, biopsies were obtained from the gastric pouch and sent for CLOtest for H pylori. Minimal bleeding from the biopsy site was seen, and the procedure was then concluded. Attention was then taken to the colonoscopy. Initial visual and digital examination revealed an anal fissure that at this point appeared to be essentially healed. There was only a thin, reddened area posteriorly in the anal canal with a very minimally palpable thickened eschar there. There was no outbreak in the anal mucosa at this time. The colonoscope was then passed into the rectum with retroflexion revealing uncomplicated hemorrhoidal columns. The scope was eventually passed to the cecum. The prep in this case was not overly good in that there was quite a bit of liquid and some solid stool present, limiting visualization of the mucosal surface to some extent, and this certainly could be associated with missing relatively small polyps. Otherwise, there were no specific abnormalities noted. Certainly, no diverticula. No areas of colitis. No evidence of recurrent polyps identified. The scope was then withdrawn, and the procedure was then concluded. Plan at this point would be to switch the patient over to Protonix. Should be able began on a course of Protonix 40 mg b.i.d. x1 month, then daily, and we would like to stop the Prilosec after being on Protonix for 2 or 3 days. The patient should undergo a repeat colonoscopy given the history of the serrated adenomatous polyp and relatively poor prep. Repeat colonoscopy should be in something like one year, and the patient should be instructed to take 3 doses of the 119 g MiraLAX in 32 ounces of Gatorade with the 3rd dose of this likely to result in a more adequate prep. The patient will be following up with Shruthi Hernandez in roughly one month. Curtis Hennessy MD /[id number]
== END 2020-06-13 12:20 | disposition home or self-care (01) ==
LOC: JP.SDS 07:47
PROVIDERS: ATTEND Surgery
DX: Z12.11 Encounter for screening for malignant neoplasm of colon (principal); K29.70 Gastritis, unspecified, without bleeding; K25.9 Gastric ulcer, unspecified as acute or chronic, without hemorrhage or perforation; K64.9 Unspecified hemorrhoids; G47.33 Obstructive sleep apnea (adult) (pediatric); J45.909 Unspecified asthma, uncomplicated; E11.9 Type 2 diabetes mellitus without complications; Z01.812 Encounter for preprocedural laboratory examination; Z20.822 Contact with and (suspected) exposure to COVID-19; Z98.84 Bariatric surgery status; Z79.899 Other long term (current) drug therapy; Z86.010 Personal history of colon polyps; K63.5 Polyp of colon; K60.4 Rectal fistula
CPT/HCPCS: 36415; 43239; 80053; 81025; 82728; 83735; 84100; 85027; 87081; C9113; G0105; J2250; J2704; J3010; J3490; J7121; U0002

== ENCOUNTER 2020-07-29 06:51 | Day surgery (SDC) | payer MEDICARE, MEDICAID ==
[2020-07-29] MEDS ORDERED: Midazolam 1 MG/ML 2 ML SDV ONE (07:12)
[2020-07-29] MEDS ORDERED: fentaNYL 100 MCG/2 ML SDV ONE (07:12)
[2020-07-29] MEDS ORDERED: Propofol 200 MG/20 ML SDV ONE ×2 (07:12→08:53)
[2020-07-29] MEDS ORDERED: Dextrose 5%-Lactated Ringers 1,000 ML IV SCH (07:30)
--- NOTE | 2020-08-06 17:21 | OR ---
DATE OF PROCEDURE: 07/29/2020 SURGEON: Curtis Hennessy MD PREOPERATIVE DIAGNOSES: Postprandial nausea, bloating, and frequent loose bowel movements with CT scan showing possible thickened right colonic mucosa. POSTOPERATIVE DIAGNOSES: 1. Postprandial nausea, bloating, and frequent loose bowel movements with CT scan showing possible thickened right colonic mucosa. 2. Grossly normal colonoscopy. OPERATIVE PROCEDURE: Colonoscopy with random biopsies of cecum and ascending colon. ANESTHESIA: IV sedation. INDICATION FOR PROCEDURE: This is a 39-year-old status post a partial gastrectomy with Diane- en-Y reconstruction in October of this past year. She has had problems with persistent frequent loose bowel movements up to 10 per day she reports and bloating in the postprandial period with nausea. The patient has been treated with Protonix, Bentyl, and Phenergan and had otherwise normal upper GI followthrough/upper endoscopy and ultrasound. Recent CT scan showed a suggestion of some thickening of the right colonic mucosa, and she is to undergo a colonoscopy at this time with biopsies as indicated. Potential risks including bleeding and perforation were discussed, and the patient wishes to proceed. DETAILS OF PROCEDURE: The patient was taken to the operating room and placed in a left lateral decubitus position. IV sedation was administered, after which the initial digital rectal exam was performed and was unremarkable. Colonoscope was then passed to the level of the cecum. The prep was quite good with only small liquid stool present. Overall, there were no gross abnormalities noted. There were no obvious areas of colitis. No diverticula. No polyps or other signs of neoplasia. To rule out microscopic colitis involving the right colon, multiple biopsies were obtained from the cecum and ascending colon, sent for histologic evaluation. The scope was then withdrawn and the procedure then concluded. If some microscopic colitis is identified on the present biopsies, we will treat that initially. Otherwise, the patient by clinical standard appears to probably have a partial small bowel obstruction and the next step if colonoscopic biopsies are not pathologic would be a limited laparotomy with lysis of adhesions and such. Curtis Hennessy MD /[id number]
== END 2020-07-29 10:05 | disposition home or self-care (01) ==
LOC: JP.SDS 06:51
PROVIDERS: ATTEND Surgery
DX: R19.7 Diarrhea, unspecified (principal); R11.0 Nausea; R14.0 Abdominal distension (gaseous); J45.909 Unspecified asthma, uncomplicated; F17.200 Nicotine dependence, unspecified, uncomplicated; E11.9 Type 2 diabetes mellitus without complications; E78.5 Hyperlipidemia, unspecified; K21.9 Gastro-esophageal reflux disease without esophagitis; Z98.84 Bariatric surgery status
CPT/HCPCS: 81025; 88305; J2250; J2704; J3010

== ENCOUNTER 2020-08-14 06:49 | Inpatient (IN) | payer MEDICARE, MEDICAID ==
[2020-08-14] MEDS ORDERED: Lidocaine 1% with EPINEPHrine 1:100,000 50 ML MDV ONE (06:51)
[2020-08-14] MEDS ORDERED: Bupivacaine 0.5% 50 ML MDV ONE (06:51)
[2020-08-14] MEDS ORDERED: Meropenem 500 MG SDV ONE (06:51)
[2020-08-14] MEDS ORDERED: Rocuronium 50 MG/5 ML Vial ONE (07:03)
[2020-08-14] MEDS ORDERED: Succinylcholine 200 MG/10 ML MDV ONE (07:03)
[2020-08-14] MEDS ORDERED: Propofol 200 MG/20 ML SDV ONE (07:03)
[2020-08-14] MEDS ORDERED: Ondansetron 4 MG/2 ML SDV ONE (07:03)
[2020-08-14] MEDS ORDERED: Glycopyrrolate 0.2 MG/ML 5 ML MDV ONE (07:03)
[2020-08-14] MEDS ORDERED: fentaNYL 250 MCG/5 ML SDV ONE (07:03)
[2020-08-14] MEDS ORDERED: Neostigmine Methylsulfate 1 MG/ML 5 ML Syringe ONE (07:03)
[2020-08-14] MEDS ORDERED: Dexamethasone 4 MG/ML SDV ONE (07:03)
[2020-08-14] MEDS ORDERED: Celecoxib 200 MG Cap PO ONE ×2 (07:09→07:15)
[2020-08-14] MEDS ORDERED: Acetaminophen 500 MG Tab PO ONE (07:15)
[2020-08-14] MEDS ORDERED: Ipratropium 0.02% 0.5 MG/2.5 ML Neb Soln NEB ONE (07:30)
[2020-08-14] MEDS ORDERED: Dextrose 5%-Lactated Ringers 1,000 ML IV SCH (07:30)
[2020-08-14] MEDS ORDERED: cefOXitin 2 GM in Sodium Chloride 0.9% 50 ML IV ONE (08:00)
[2020-08-14] MEDS ORDERED: EPINEPHRINE NERVRT SCH ×4 (09:00)
[2020-08-14] MEDS ORDERED: Ketamine 50 MG in Sodium Chloride 0.9% 49.5 ML IV SCH (09:00)
[2020-08-14] MEDS ORDERED: DEXAMETHASONE NERVRT SCH ×4 (09:00)
[2020-08-14] MEDS ORDERED: SODIUM CHLORIDE 0.9% NERVRT SCH ×4 (09:00)
[2020-08-14] MEDS ORDERED: ROPIVACAINE NERVRT SCH ×4 (09:00)
[2020-08-14] MEDS ORDERED: Ketamine 500 MG/5 ML MDV IV SCH (09:00)
[2020-08-14] MEDS ORDERED: Magnesium Sulfate 2 GM in Sodium Chloride 0.9% 100 ML IV SCH (09:00)
[2020-08-14] MEDS ORDERED: fentaNYL 100 MCG/2 ML SDV ONE (09:10)
[2020-08-14] MEDS ORDERED: Magnesium Sulfate 2.2 GM in Sodium Chloride 0.9% 250 ML IV ONE (09:30)
[2020-08-14] MEDS ORDERED: Cyclobenzaprine 10 MG Tab PO PRN (11:23)
[2020-08-14] MEDS ORDERED: Ipratropium 0.02% 0.5 MG/2.5 ML Neb Soln INH PRN (11:32)
[2020-08-14] MEDS ORDERED: Levalbuterol Tartrate HFA 15 GM Inhaler INH PRN (11:33)
[2020-08-14] MEDS: Dextrose 5%-Lactated Ringers 1,000 ML IV SCH ×3 (11:37→21:49)
[2020-08-14] MEDS ORDERED: Diazepam 5 MG Tab PO PRN (11:40)
[2020-08-14] MEDS ORDERED: Labetalol 20 MG/4 ML Syringe IVPUSH PRN (12:00)
[2020-08-14] MEDS ORDERED: Pantoprazole 40 MG Vial IVPUSH SCH (12:00)
[2020-08-14] MEDS ORDERED: Calcium Gluconate 10% 1 GM/10 ML SDV IVPUSH PRN (12:00)
[2020-08-14] MEDS ORDERED: HYDROmorphone 1 MG/ML Syringe IV PRN (12:00)
[2020-08-14] MEDS ORDERED: Acetaminophen 500 MG Tab PO PRN (12:00)
[2020-08-14] MEDS ORDERED: Ondansetron 4 MG/2 ML SDV IVPUSH PRN (12:00)
[2020-08-14] MEDS ORDERED: diphenhydrAMINE 50 MG/ML SDV IVPUSH PRN (12:00)
[2020-08-14] MEDS ORDERED: HYDROmorphone 0.5 MG/0.5 ML Syringe IVPUSH PRN (12:00)
[2020-08-14] MEDS ORDERED: oxyCODONE 5 MG Tab PO PRN (12:00)
[2020-08-14] MEDS ORDERED: Metoclopramide 10 MG/2 ML SDV IVPUSH PRN (12:00)
[2020-08-14] MEDS: cefOXitin 2 GM in Sodium Chloride 0.9% 50 ML IV SCH ×2 (13:41→19:23)
[2020-08-14] MEDS: Acetaminophen 500 MG Tab PO SCH ×2 (13:45→21:00)
[2020-08-14] MEDS: Ipratropium 0.02% 0.5 MG/2.5 ML Neb Soln INH SCH ×2 (14:39→20:44)
[2020-08-14] MEDS: hydrOXYzine HCL 100 MG/2 ML SDV IM PRN ×2 (15:07→20:44)
[2020-08-14] MEDS: oxyCODONE 5 MG Tab PO PRN ×2 (15:27→19:36)
[2020-08-14] MEDS: Amphetamine/Dextroamphetamine Salts 10 MG Tab PO SCH (15:35)
[2020-08-14] MEDS ORDERED: MVI, Adult with Vitamin K 10 ML, Thiamine 200 MG, Zinc/Copper/Manganese/Selenium 1 ML i... IV SCH ×4 (16:00)
[2020-08-14] MEDS: Heparin Sodium 5,000 Units/ML Vial SUBCUT SCH (18:12)
[2020-08-14] MEDS: Sertraline 50 MG Tab PO SCH (20:36)
[2020-08-14] MEDS: Montelukast 10 MG Tab PO SCH (20:36)
[2020-08-14] MEDS: lamoTRIgine 100 MG Tab PO SCH (20:36)
[2020-08-15] MEDS: oxyCODONE 5 MG Tab PO PRN ×5 (01:02→20:09)
[2020-08-15] MEDS: cefOXitin 2 GM in Sodium Chloride 0.9% 50 ML IV SCH ×2 (02:27→07:29)
[2020-08-15] MEDS ORDERED: Iopamidol 612 MG/ML 50 ML SDV PO STA (04:10)
[2020-08-15] MEDS: Dextrose 5%-Lactated Ringers 1,000 ML IV SCH ×2 (04:17→10:49)
[2020-08-15] MEDS: hydrOXYzine HCL 100 MG/2 ML SDV IM PRN (04:51)
[2020-08-15] MEDS: Acetaminophen 500 MG Tab PO SCH ×3 (05:58→22:13)
[2020-08-15] MEDS: Heparin Sodium 5,000 Units/ML Vial SUBCUT SCH ×2 (05:58→17:43)
[2020-08-15] MEDS: Ipratropium 0.02% 0.5 MG/2.5 ML Neb Soln INH SCH ×4 (07:13→20:20)
[2020-08-15] MEDS: tiZANidine 4 MG Tab PO PRN ×2 (07:43→17:43)
[2020-08-15] MEDS: Celecoxib 200 MG Cap PO SCH ×2 (08:58→20:13)
[2020-08-15] MEDS: ARIPiprazole 10 MG Tab PO SCH ×2 (08:58→20:10)
[2020-08-15] MEDS: Amphetamine/Dextroamphetamine Salts 10 MG Tab PO SCH ×3 (08:59→16:09)
[2020-08-15] MEDS: Sertraline 50 MG Tab PO SCH ×2 (08:59→20:13)
[2020-08-15] MEDS: lamoTRIgine 100 MG Tab PO SCH ×2 (08:59→20:12)
[2020-08-15] MEDS ORDERED: ARIPiprazole 10 MG Tab PO SCH (09:00)
--- NOTE | 2020-08-15 09:05 | CR ---
UGI Limited HISTORY: Postbariatric surgery FINDINGS: Patient swallowed water-soluble contrast. Upright views of the abdomen show no evidence of extravasation or obstruction. There is some gaseous distention of transverse colon. IMPRESSION: Status post bariatric surgery No extravasation or obstruction seen
[2020-08-15] MEDS: Pantoprazole 40 MG Delayed-Release Granules 1 Packet PO SCH (10:52)
[2020-08-15] MEDS ORDERED: MVI, Adult with Vitamin K 10 ML, Thiamine 200 MG, Zinc/Copper/Manganese/Selenium 1 ML i... IV SCH ×4 (16:00)
[2020-08-15] MEDS: Montelukast 10 MG Tab PO SCH (20:13)
[2020-08-16] MEDS: oxyCODONE 5 MG Tab PO PRN ×3 (00:49→08:21)
[2020-08-16] MEDS: Dextrose 5%-Lactated Ringers 1,000 ML IV SCH (04:15)
[2020-08-16] MEDS: Acetaminophen 500 MG Tab PO SCH (05:16)
[2020-08-16] MEDS: Heparin Sodium 5,000 Units/ML Vial SUBCUT SCH (05:17)
[2020-08-16] MEDS: Ipratropium 0.02% 0.5 MG/2.5 ML Neb Soln INH SCH (07:30)
[2020-08-16] MEDS: Pantoprazole 40 MG Delayed-Release Granules 1 Packet PO SCH (07:31)
[2020-08-16] MEDS: Amphetamine/Dextroamphetamine Salts 10 MG Tab PO SCH (07:38)
[2020-08-16] MEDS ORDERED: Cyanocobalamin (Vitamin B12) 1,000 MCG/ML SDV IM ONE (09:00)
[2020-08-16] MEDS: Sertraline 50 MG Tab PO SCH (09:19)
[2020-08-16] MEDS: lamoTRIgine 100 MG Tab PO SCH (09:19)
[2020-08-16] MEDS: Celecoxib 200 MG Cap PO SCH (09:20)
[2020-08-16] MEDS: ARIPiprazole 10 MG Tab PO SCH (09:20)
--- NOTE | 2020-08-22 13:43 | PN ---
DATE OF SERVICE: 08/15/2020 The patient has been afebrile with stable vital signs. Urine output has been good, and we will discontinue Garzon catheter, back down on IV rate today, move her up to a step-2 diet. Her upper GI x-ray looked good, and we will maximize activity and work with pulmonary toilet. Curtis Hennessy MD /[id number]
--- NOTE | 2020-08-22 17:46 | DISCH ---
FINAL DIAGNOSES: 1. Partial small bowel obstruction secondary to small bowel volvulus and stricture at the junction of the Diane limb and jejunojejunostomy. 2. Incarcerated incisional hernia. 3. Peritoneal implants overlying the abdominal wall and small bowel adjacent to jejunojejunostomy. SECONDARY DIAGNOSES: 1. Bariatric surgery status. 2. Schizoaffective disorder. 3. History of asthma. 4. Obstructive sleep apnea. 5. Fibromyalgia. OPERATIVE PROCEDURE: Done on 08/14/2020, exploratory laparotomy with: 1. Reduction of small bowel volvulus and closure of internal hernia. 2. Revision of jejunojejunostomy component of Diane-en-Y gastric bypass. 3. Repair of incarcerated incisional hernia. 4. Excision of peritoneal nodule overlying the abdominal wall and small bowel. 5. Placement of Interceed mesh. SUMMARY: This is a 39-year-old female status post a partial gastrectomy for a combination of obesity and reflux symptoms. She presents now with a postprandial chronic abdominal pain. The initial CT scan suggested a possible colitis, but colonoscopy failed to reveal that and the patient underwent imperative exploration with the above-noted findings. Postoperatively, the patient has done well. Her pain seems to be controlled at this point, is tolerating a step-3 diet, and will be discharged home on that until the first appointment, which will be with Shruthi Hernandez at [facility] on 08/22/2020. Medications will be the same as preoperatively plus oxycodone 5 mg p.o. q.4 hours p.r.n. pain #40, Tylenol 1 g q.6 hours p.r.n., and then Flexeril 10 mg p.o. q.8 hours p.r.n. muscle spasm #30 with 1 refill. /[id number]
--- NOTE | 2020-08-25 13:50 | OR ---
DATE OF PROCEDURE: 08/14/2020 SURGEON: Curtis Hennessy MD PREOPERATIVE DIAGNOSIS: Partial small bowel obstruction. POSTOPERATIVE DIAGNOSES: 1. Partial small bowel obstruction secondary to: a. Small bowel volvulus. b. 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 2. Incarcerated incisional hernia. 3. Peritoneal implant measuring 3 cm overlying the anterior abdominal wall and adjacent small bowel. OPERATIVE PROCEDURES: Exploratory laparotomy with: 1. Reduction of small bowel volvulus and closure of internal hernia (81644). 2. Revision of jejunojejunostomy component of Diane-en-Y gastric bypass (87747). 3. Repair of incarcerated incisional hernia (27427). 4. Excision of peritoneal nodule underlying anterior abdominal wall extending onto adjacent small bowel (11044). 5. Placement of Interceed mesh to limit recurrent adhesion formation between pelvic and abdominal wall and underlying viscera (20160). ANESTHESIA: General. ASSOCIATE PROFESSOR OF BIOSTATISTICS: Shruthi Hernandez PA-C INDICATIONS FOR PROCEDURE: This is a 39-year-old status post previous Diane-en-Y gastric bypass, presenting with a picture of partial small bowel obstruction. After preoperative evaluation and discussion, she wished to proceed with a laparotomy with lysis of adhesions, reduction of any volvulus that might be identified, and small bowel resection as indicated. Potential risks including bleeding, infection, leaks from various GI tract closures, problems with recurrence, or persistence of the problem over time were all reviewed with the patient and she wishes to proceed. DETAILS OF PROCEDURE: The patient was taken to the operating room, and after general endotracheal anesthesia was induced, a Garzon catheter was inserted, and the abdomen prepped and draped. A midline incision from the umbilicus upward towards the xiphoid was made and carried down through the skin, subcutaneous tissue into the peritoneal cavity. Some limited adhesions between the transverse colon, omentum, and the anterior abdominal wall were taken down. Exploration at this point revealed there to be a small bowel volvulus with Diane limb and jejunojejunostomy and some of the common limb that was prolapsing in a plane behind the mesentery of the Diane limb. As this was reduced, the patient was noted to have a fixed stricture at the point where the Diane limb entered the jejunojejunostomy. The patient also was noted to have incarcerated incisional hernia related to previous trocar site in the lower aspect of the incision containing some incarcerated preperitoneal fat. As one further explored the small bowel, there was a 3 cm elongated peritoneal implant on the anterior abdominal wall extending downward on to the small bowel causing some distortion of that as well, and this was excised and sent as a separate specimen. After reduction of small bowel volvulus, the mesenteric defect was closed off with a 2-0 silk stitch. The jejunojejunostomy component of the Diane limb was then revised with division of the point where the Diane limb entered the jejunojejunostomy with XIN stapler. This anastomosis was then revised somewhat distally roughly 20 cm further distally with a [id number] enteroenterostomy with internal firing of the Endo-XIN 60 mm stapler. Common opening was then closed transversely with the same stapler. Angles anastomosed and reinforced with some 3-0 Vicryl stitch and the mesenteric defect closed with some 2-0 silk stitch. At this point, no further problems were noted. The abdomen was irrigated with antibiotic- containing saline solution. Bilateral transversus abdominis plane blocks were placed and the midline fascia approximated with a #2 Vicryl stitch. This included repair of the incisional hernia which was located in the lower aspect of the midline incision. The skin and subcutaneous tissue were approximated with some Vicryl stitches followed by clem. Prior to closure of the abdomen, Interceed mesh was placed underneath the incision and from there down towards the pelvis to limit recurrent adhesion formation between the pelvic and abdominal wall and the underlying viscera. The patient was taken to the recovery room in satisfactory condition. Physician pharmacy sales assistant, Shruthi Hernandez, played an essential role in assisting in this case, helping to position the patient, retract structures as needed, as well as suturing and cutting sutures when indicated. Her presence improved patient safety and decreased operative time. Curtis Hennessy MD /[id number]
== END 2020-08-16 09:30 | disposition home or self-care (01) | DRG 326 ==
LOC: JP.SDS 06:49 → UNDOADMIN 09:45 → JP.MS 09:45 → EDSTATUS 15:15
PROVIDERS: ADMIT Surgery; ATTEND Surgery
PROC: 0D160ZA Bypass Stomach to Jejunum, Open Approach (ICD-10-PCS; principal; 2020-08-14)
PROC: 0DS80ZZ Reposition Small Intestine, Open Approach (ICD-10-PCS; 2020-08-14)
PROC: 0WQF0ZZ Repair Abdominal Wall, Open Approach (ICD-10-PCS; 2020-08-14)
PROC: 0DBW0ZZ Excision of Peritoneum, Open Approach (ICD-10-PCS; 2020-08-14)
PROC: 3E0M05Z Introduction of Adhesion Barrier into Peritoneal Cavity, Open Approach (ICD-10-PCS; 2020-08-14)
DX: K95.89 Other complications of other bariatric procedure (principal); K56.2 Volvulus; K56.600 Partial intestinal obstruction, unspecified as to cause; K43.0 Incisional hernia with obstruction, without gangrene; Y83.8 Other surgical procedures as the cause of abnormal reaction of the patient, or of later complication, without mention of misadventure at the time of the procedure; F90.9 Attention-deficit hyperactivity disorder, unspecified type; G89.29 Other chronic pain; R10.9 Unspecified abdominal pain; M54.5 Low back pain; F43.10 Post-traumatic stress disorder, unspecified; K57.30 Diverticulosis of large intestine without perforation or abscess without bleeding; M79.7 Fibromyalgia; K21.9 Gastro-esophageal reflux disease without esophagitis; F41.1 Generalized anxiety disorder; E78.5 Hyperlipidemia, unspecified; M51.16 Intervertebral disc disorders with radiculopathy, lumbar region; G47.33 Obstructive sleep apnea (adult) (pediatric); E11.42 Type 2 diabetes mellitus with diabetic polyneuropathy; M19.019 Primary osteoarthritis, unspecified shoulder; F25.9 Schizoaffective disorder, unspecified; Z79.899 Other long term (current) drug therapy; Z98.890 Other specified postprocedural states; Z88.5 Allergy status to narcotic agent; Z88.8 Allergy status to other drugs, medicaments and biological substances; Z98.84 Bariatric surgery status
CPT/HCPCS: 36415; 74240; 74240-26; 81025; 82607; 82728; 88305; 88307; 93005; 94640; A9270-GY; C9113; J0171; J0330; J0694; J1100; J1170; J1644; J2185; J2405; J2704; J2710; J2795; J3010; J3410; J3411; J3420; J3475; J3490; J7050; J7121; Q9967

== ENCOUNTER 2020-12-03 11:27 | Emergency (ER) | payer MEDICARE, MEDICAID ==
--- NOTE | 2020-12-03 14:56 | EDM.PDOC ---
ED HPI GENERAL MEDICAL PROBLEM - General Chief Complaint: Gastrointestinal Problem Stated Complaint: DARK STOOLS Time Seen by Provider: 12/03/20 13:00 Source of Information: Reports: Patient, Family History Limitations: Reports: No Limitations - History of Present Illness INITIAL COMMENTS - FREE TEXT/NARRATIVE: 40-year-old female with chronic abdominal pain and bloating, presents with worsening pain over the past 24 to 48 hours, especially lower abdominal pain, and "black stools" this morning. After the dark stools that she had yellowish or bilious type stools. She has 2 episodes of vomiting the last 2 days. No fevers or chills. She wanted to be rechecked by surgery because she is status post gastric bypass but they informed her to be checked at the emergency room. Onset: Unknown/Unsure (Only one episode of dark stools, the abdominal symptoms wax and wane chronically) Duration: Waxing/Waning Location: Reports: Abdomen (Mostly lower abdominal discomfort) Associated Symptoms: Reports: Loss of Appetite, Malaise, Other (Early satiety, lots of reflux). Denies: Fever/Chills, Shortness of Breath Abdominal Pain Score (Numeric/FACES): 7 - Related Data Allergies Allergy/AdvReac Type Severity Reaction Status Date / Time albuterol AdvReac Tachycardia Verified 12/03/20 12:17 gabapentin AdvReac Confusion Verified 12/03/20 12:17 hydrocodone AdvReac Irritabilit Verified 12/03/20 12:17 y pregabalin [From Lyrica] AdvReac Confusion Verified 12/03/20 12:17 Home Meds: Home Meds ARIPiprazole [Aripiprazole] 30 mg PO BID 06/08/18 [History] Levalbuterol Tartrate [Levalbuterol Tartrate Hfa] 2 puff IN Q4H PRN 06/08/18 [History] Montelukast [Singulair] 10 mg PO BEDTIME 06/08/18 [History] Pravastatin Sodium 10 mg PO DAILY 06/08/18 [History] lamoTRIgine 200 mg PO BID 06/08/18 [History] levonorgestreL [Kyleena] 1 each IY ASDIRECTED 10/17/19 [History] Calcium Citrate/Vitamin D3 [Calcium Citrate - Vit D Tablet] 1 each PO DAILY 01/28/20 [History] Cyanocobalamin (Vitamin B-12) [Vitamin B-12] 1,000 mcg SL DAILY 01/28/20 [History] Thiamine [Vitamin B-1] 100 mg PO DAILY 01/28/20 [History] Vitamin B Complex [B Complex] 1 each PO DAILY 01/28/20 [History] tiZANidine HCl [Zanaflex] 4 mg PO TID PRN 01/28/20 [History] cycloSPORINE [Restasis] 1 drop EYEBOTH BID 04/30/20 [History] Dicyclomine [Bentyl] 10 mg PO TID PRN 06/04/20 [History] Ipratropium [Atrovent] 1 dose IH QID PRN 06/04/20 [History] Promethazine [Phenergan] 25 mg PO Q6H PRN 06/04/20 [History] Simethicone 125 mg PO QIDACANDBED 06/04/20 [History] Dextroamphetamine/Amphetamine [Adderall] 30 mg PO TID 07/28/20 [History] diazePAM [Valium.] 5 mg PO QID PRN 07/28/20 [History] Tiotropium [Spiriva] 18 mcg INH DAILY 08/11/20 [History] Papaya [Papaya Enzyme] 1 tab PO DAILY 08/14/20 [History] Pediatric Multivitamin No.42 [Flintstones] 1 tab PO BID 08/14/20 [History] Sertraline [Zoloft] 50 mg PO BID 08/14/20 [History] Acetaminophen [Tylenol Extra Strength] 1,000 mg PO Q6H PRN #1 tab 08/16/20 [Rx] ARIPiprazole [Abilify Maintena] 300 mg PO BID 12/03/20 [History] traMADol [Ultram] 50 mg PO Q6H PRN 12/03/20 [History] Past Medical History HEENT History: Reports: Impaired Vision, Other (See Below) Other HEENT History: autoimmune disorder affecting sinuses, chronic dry eyes with nasal drainage Cardiovascular History: Reports: High Cholesterol, Other (See Below) Other Cardiovascular History: tachycardia Respiratory History: Reports: Asthma, Pneumonia, Recurrent, Sleep Apnea Gastrointestinal History: Reports: Diverticulosis, GERD, Hiatal Hernia, Irritable Bowel Syndrome, PUD, Other (See Below) Other Gastrointestinal History: small intestinal bacterial overgrowth, serrated adenoma of colon, partial sbo Genitourinary History: Reports: Urinary Incontinence, Other (See Below) Other Genitourinary History: some bladder function loss MOSQUITO SPRAYER History: Reports: Polycystic Ovaries, , Other (See Below) Other MOSQUITO SPRAYER History: IUD Musculoskeletal History: Reports: Back Pain, Chronic, Connective Tissue Disease, Fibromyalgia, Osteoarthritis, Other (See Below) Other Musculoskeletal History: chronic bilat thoracic back pain, chronic right shoulder pain, multisystem atrophy Neurological History: Reports: Concussion, Headaches, Chronic, Migraines, Seizure, Vertigo, Other (See Below) Other Neuro History: TBI; x1 seizure in 2010, no problems since Psychiatric History: Reports: Anxiety, Bipolar, Depression, PTSD, Suicidal Ideation, Other (See Below) Other Psychiatric History: insomnia Endocrine/Metabolic History: Reports: Diabetes, Type II, Obesity/BMI 30+ Hematologic History: Reports: Anemia Immunologic History: Reports: Other (See Below) Other Immunologic History: autoimmune connective tissue disease Oncologic (Cancer) History: Reports: Other (See Below) Other Oncologic History: serrated adenoma of colon Dermatologic History: Reports: Cellulitis - Infectious Disease History Infectious Disease History: Reports: Chicken Pox, MRSA Other Infectious Disease History: history of MRSA in a wound from shaving in 2010; - Past Surgical History HEENT Surgical History: Reports: Other (See Below) Other HEENT Surgeries/Procedures: lanced cyst behind ear Cardiovascular Surgical History: Reports: None Respiratory Surgical History: Reports: None GI Surgical History: Reports: Bariatric Procedure, Cholecystectomy, Colonoscopy, EGD Other GI Surgeries/Procedures: RNY October 22 2019, hiatal hernia repair Female Surgical History: Reports: Other (See Below) Other Female Surgeries/Procedures: rectal fistula, IUD Endocrine Surgical History: Reports: None Neurological Surgical History: Reports: Discectomy Musculoskeletal Surgical History: Reports: Shoulder Surgery, Other (See Below) Other Musculoskeletal Surgeries/Procedures:: discectomy l5 s1 Oncologic Surgical History: Reports: None Dermatological Surgical History: Reports: None Social & Family History - Family History Family Medical History: No Pertinent Family History Other Dermatologic Family History: not pertienent family medical history - Tobacco Use Tobacco Use Status *Q: Current Every Day Tobacco User Years of Tobacco use: 25 Packs/Tins Daily: 1.5 - Caffeine Use Caffeine Use: Reports: Coffee, Energy Drinks Other Caffeine Use: 1 c. daily - Recreational Drug Use Recreational Drug Use: Yes Recreational Drug Type: Reports: Marijuana/Hashish ED ROS GENERAL - Review of Systems Review Of Systems: See Below Constitutional: Reports: Malaise. Denies: Fever, Chills HEENT: Reports: No Symptoms Respiratory: Denies: Shortness of Breath Cardiovascular: Denies: Chest Pain GI/Abdominal: Reports: Abdominal Pain, Black Stool, Diarrhea, Nausea, Vomiting : Reports: No Symptoms Skin: Reports: No Symptoms Neurological: Reports: No Symptoms Psychiatric: Reports: Anxiety ED EXAM, GI/ABD - Physical Exam Exam: See Below Exam Limited By: No Limitations General Appearance: Alert, No Apparent Distress, Other (Somewhat uncomfortable but not distressed) Eyes: Bilateral: Normal Appearance (Well-hydrated, no jaundice) Head: Atraumatic Neck: Non-Tender Respiratory/Chest: Lungs Clear Cardiovascular: Regular Rate, Rhythm. No: Tachycardia GI/Abdominal Exam: Normal Bowel Sounds, Soft, Tender (Does react with tenderness to palpation across the lower abdomen, no focal guarding or rebound) Extremities: Normal Inspection Neurological: Alert, Oriented Psychiatric: Normal Affect, Normal Mood Skin Exam: Warm, Dry Course - Vital Signs Last Recorded V/S: Last Vital Signs Temp 97.9 F 12/03/20 16:51 Pulse 101 H 12/03/20 16:51 Resp 16 12/03/20 16:51 BP 110/62 12/03/20 16:51 Pulse Ox 96 12/03/20 16:51 - Orders/Labs/Meds Labs: Laboratory Tests 12/03/20 12/03/20 12/03/20 Range/Units 13:39 13:39 13:39 WBC (4.5-11.0) K/uL RBC Not Reportable Hgb Not Reportable Hct Not Reportable MCV Not Reportable MCH Not Reportable MCHC Not Reportable Plt Count Not Reportable Neut % (Auto) Not Reportable Lymph % (Auto) Not Reportable [place] % (Auto) Not Reportable Eos % (Auto) Not Reportable Baso % (Auto) Not Reportable Sodium 142 (140-148) mmol/L Potassium 4.5 (3.6-5.2) mmol/L Chloride 106 (100-108) mmol/L Carbon Dioxide 28 (21-32) mmol/L Anion Gap 7.7 (5.0-14.0) mmol/L BUN 3 L (7-18) mg/dL Creatinine 0.6 (0.6-1.0) mg/dL Est Cr Clr Drug Dosing 119.01 mL/min Estimated GFR (MDRD) > 60 (>60) Glucose 79 (74-106) mg/dL Lactic Acid 0.9 (0.4-2.0) mmol/L Calcium 8.7 (8.5-10.1) mg/dL Total Bilirubin 0.2 (0.2-1.0) mg/dL AST 43 H D (15-37) U/L ALT 66 (12-78) U/L Alkaline Phosphatase 111 (46-116) U/L Total Protein 5.8 L (6.4-8.2) g/dL Albumin 3.2 L (3.4-5.0) g/dL Globulin 2.6 (2.3-3.5) g/dL Albumin/Globulin Ratio 1.2 (1.2-2.2) Lipase 43 L (73-393) U/L Meds: Medications Discontinued Medications Generic Name Dose Route Start Last Admin Trade Name Freq PRN Reason Stop Dose Admin Sodium Chloride 100 mls @ 3 mls/sec 12/03/20 15:15 12/03/20 15:16 Normal Saline IV 3 mls/sec ASDIRECTED LAI Administration Iopamidol 100 ml 12/03/20 15:03 12/03/20 15:16 Iopamidol 612 Mg/Ml 100 Ml Bottle IV 12/04/20 15:04 100 ml . DIRECTED PRN Administration RADIOLOGY EXAM Sodium Chloride 10 ml 12/03/20 15:03 12/03/20 15:16 Sodium Chloride 0.9% 10 Ml Sdv FLUSH 12/03/20 15:04 10 ml ONETIME ONE Administration - Re-Assessments/Exams Free Text/Narrative Re-Assessment/Exam: 12/03/20 15:19 CBC, CMP, lipase were ordered. Stool guaiac was negative. I explained to the patient that her dark black stools this morning were not caused by GI bleed because she could not have a negative guaiac at this time. CMP returned basically normal, lipase was normal, CT of the abdomen and pelvis with IV contrast was ordered. 12/03/20 17:09 IMPRESSION: 1. Large amount of colonic gas is present, with mild amount of steatorrhea. 2. Postsurgical changes of gastric bypass are noted, no evidence of bowel obstruction. 3. Normal appendix. Above results were discussed with the patient, she is going to try Dulcolax supp ositories twice daily for the next few days and MiraLAX orally. She can return if not improving satisfactorily over the course of the weekend. Departure - Departure Time of Disposition: 17:10 Disposition: Home, Self-Care 01 Clinical Impression: Abdominal pain - Discharge Information Instructions: Abdominal Pain, Adult, [id number] Referrals: Lelo Camacho MD [Primary Care Provider] - Forms: ED Department Discharge Care Plan Goals: Continue activity and diet as tolerated, consider Dulcolax suppositories twice daily to stimulate bowels. Oral MiraLAX may also be helpful. Return in 2 to 3 days if not improving satisfactorily, or return anytime if worsening such as fever, increased nausea and vomiting or uncontrolled pain. Sepsis Event Note (ED) - Evaluation Sepsis Screening Result: No Definite Risk - Focused Exam Vital Signs: Vital Signs Temp Pulse Resp BP Pulse Ox 12/03/20 16:51 97.9 F 101 H 16 110/62 96 12/03/20 11:50 97.4 F 87 16 136/56 L 97
[2020-12-03] MEDS ORDERED: Iopamidol 612 MG/ML 100 ML Bottle IV PRN (15:03)
[2020-12-03] MEDS ORDERED: Sodium Chloride 0.9% 10 ML SDV FLUSH ONE (15:03)
[2020-12-03] MEDS ORDERED: Sodium Chloride 0.9% 100 ML IV SCH (15:15)
--- NOTE | 2020-12-03 16:33 | CRLCT ---
For Patients: As a result of the Century Cures Act, medical imaging exams and procedure reports are released immediately into your electronic medical record. You may view this report before your referring provider. If you have questions, please contact your health care provider. INDICATION: Abdominal pain. Black stools. TECHNIQUE: CT abdomen and pelvis acquired with 100 mL Isovue-300 contrast. COMPARISON: CT abdomen/pelvis dated 07/22/2020. FINDINGS: Lower chest: No focal consolidation. Mosaic attenuation within the right middle lobe and lingula, may be secondary to motion artifact/expiratory phase of imaging. Liver: Too small to characterize hypodense hepatic lesions, likely benign in the absence of a known malignancy. Gallbladder and bile ducts: Gallbladder is surgically absent. Prominence of the biliary ducts, likely secondary to postcholecystectomy state. Pancreas: Unremarkable. Spleen: Unremarkable. Adrenal glands: Unremarkable Kidneys: Kidneys enhance symmetrically, without hydronephrosis. Retroperitoneum: No lymphadenopathy Bowel and mesentery: Bowel is nonobstructed. Large amount of colonic gas is present, with mild amount of steatorrhea. Normal appendix. Postsurgical changes of gastric bypass are noted, no evidence of obstruction. Bladder: Unremarkable for degree of distension. Reproductive organs: Intrauterine contraceptive device is noted. Dominant follicle within the right ovary. Trace pelvic free fluid, likely physiologic. Pelvic lymph nodes: No lymphadenopathy. Vessels: Unremarkable. Abdominal wall: No acute abdominal wall abnormality. Bones: No suspicious/aggressive focal osseous lesion. IMPRESSION: 1. Large amount of colonic gas is present, with mild amount of steatorrhea. 2. Postsurgical changes of gastric bypass are noted, no evidence of bowel obstruction. 3. Normal appendix. Please note that all CT scans at this facility use dose modulation, iterative reconstruction, and/or weight-based dosing when appropriate to reduce radiation dose to as low as reasonably achievable. Dictated by Opal Kenny MD @ 12/03/2020 4:31:[address] Opal Kenny @ Dec 03 2020 4:31PM
== END 2020-12-03 17:17 | disposition home or self-care (01) ==
LOC: JP.ED 11:27
DX: R10.30 Lower abdominal pain, unspecified (principal); R11.2 Nausea with vomiting, unspecified; K21.9 Gastro-esophageal reflux disease without esophagitis; E11.9 Type 2 diabetes mellitus without complications; E66.9 Obesity, unspecified; Z72.0 Tobacco use; Z68.24 Body mass index [BMI] 24.0-24.9, adult; Z88.5 Allergy status to narcotic agent; Z88.8 Allergy status to other drugs, medicaments and biological substances
CPT/HCPCS: 36415; 74177; 80053; 82272; 83605; 83690; 85025; 99284; Q9967

== ENCOUNTER 2021-08-07 06:27 | Day surgery (SDC) | payer MEDICARE, MEDICAID ==
[2021-08-07] MEDS ORDERED: Sodium Chloride 0.9% 1,000 ML IV SCH (07:00)
[2021-08-07] MEDS ORDERED: fentaNYL 100 MCG/2 ML SDV ONE (07:05)
[2021-08-07] MEDS ORDERED: Propofol 200 MG/20 ML SDV ONE ×2 (07:06→08:19)
[2021-08-07] MEDS ORDERED: Midazolam 1 MG/ML 2 ML SDV ONE (07:06)
== END 2021-08-07 09:55 | disposition home or self-care (01) ==
LOC: JP.SDS 06:27
PROVIDERS: ATTEND Surgery
DX: R63.4 Abnormal weight loss (principal); K21.9 Gastro-esophageal reflux disease without esophagitis; J45.909 Unspecified asthma, uncomplicated; F17.200 Nicotine dependence, unspecified, uncomplicated; G47.33 Obstructive sleep apnea (adult) (pediatric); Z68.20 Body mass index [BMI] 20.0-20.9, adult
CPT/HCPCS: 81025; J2250; J2704; J3010; J7030

== ENCOUNTER 2021-09-12 12:13 | Emergency (ER) | payer MEDICARE, MEDICAID ==
[2021-09-12] MEDS ORDERED: Ketorolac 30 MG/ML SDV IM ONE (13:32)
== END 2021-09-12 16:04 | disposition home or self-care (01) ==
LOC: JP.ED 12:13
DX: S51.811A Laceration without foreign body of right forearm, initial encounter (principal); S46.911A Strain of unspecified muscle, fascia and tendon at shoulder and upper arm level, right arm, initial encounter; S16.1XXA Strain of muscle, fascia and tendon at neck level, initial encounter; E78.00 Pure hypercholesterolemia, unspecified; K21.9 Gastro-esophageal reflux disease without esophagitis; E11.9 Type 2 diabetes mellitus without complications; E66.9 Obesity, unspecified; Z68.22 Body mass index [BMI] 22.0-22.9, adult; Z88.5 Allergy status to narcotic agent; Z88.8 Allergy status to other drugs, medicaments and biological substances; Z72.0 Tobacco use; Z79.899 Other long term (current) drug therapy; W06.XXXA Fall from bed, initial encounter
CPT/HCPCS: 12001; 72125; 73030-26-RT; 73030-RT; 96372; 99282; 99283-25; J1885

== ENCOUNTER 2022-09-23 09:30 | Emergency (ER) | payer MEDICARE, MEDICAID ==
[2022-09-23 10:39] LABS: BASOPHILS ABSOLUTE AUTO 0.07 K/uL (0.00-0.10); BASOPHILS PERCENT AUTO 0.7 % (0.1-1.3); EOSINOPHILS PERCENT AUTO 2.9 % (0.0-5.4); HEMATOCRIT 42.5 % (34.3-46.0); HEMOGLOBIN 13.8 g/dL (11.2-15.5); IMMATURE GRAN ABSOLUTE AUTO 0.04 K/uL (0.00-0.23); IMMATURE GRAN PERCENT AUTO 0.4 % (0.0-0.7); LYMPHOCYTES ABSOLUTE AUTO 2.74 K/uL (0.8-3.3); LYMPHOCYTES PERCENT AUTO 26.1 % (11.4-47.7); MEAN CORPUSCULAR HEMOGLOBIN 30.7 pg (31.6-35.5); MEAN CORPUSCULAR HGB CONC 32.5 g/dL (31.6-35.5); MEAN CORPUSCULAR VOLUME 94.7 fL (81.4-99.0); MONOCYTES ABSOLUTE AUTO 0.59 K/uL (0.20-0.90); MONOCYTES PERCENT AUTO 5.6 % (3.3-12.6); NEUTROPHILS ABSOLUTE AUTO 6.77 K/uL (1.0-7.6); NEUTROPHILS PERCENT AUTO 64.3 % (40.0-78.1); PLATELET COUNT,PLT 423 K/uL (130-375); RED BLOOD CELL COUNT 4.49 M/uL (3.77-5.24); WHITE BLOOD CELL COUNT,WBC 10.5 K/uL (3.2-11.0)
[2022-09-23 10:40] LABS: BASE EXCESS VENOUS 4.1 mm/L; BICARBONATE,VENOUS 29.4 mmol/L; METHEMOGLOBIN 1.1 %; O2 SATURATION VENOUS 35.4; OXYHEMOGLOBIN 32.9 %; PCO2 VENOUS 48.3 mm/Hg; PH,VENOUS 7.401 (7.350-7.450); TOTAL HEMOGLOBIN 14.1 g/dL (12.0-16.0)
[2022-09-23 10:41] LABS: PO2 VENOUS 22.6 mm/Hg
[2022-09-23 11:15] LABS: A/G RATIO 1.1 (1.2-2.2); ALANINE AMINOTRANSFERASE,ALT 37 U/L (12-78); ALBUMIN 3.7 g/dL (3.4-5.0); ALKALINE PHOSPHATASE 92 U/L (46-116); ANION GAP 4.7 mmol/L (5.0-14.0); ASPARTATE AMNIOTRANSFERASE,AST 23 U/L (15-37); BILIRUBIN TOTAL 0.3 mg/dL (0.2-1.0); BLOOD UREA NITROGEN,BUN 5 mg/dL (7-18); CALCIUM 9.2 mg/dL (8.5-10.1); CARBON DIOXIDE,CO2 32 mmol/L (21-32); CHLORIDE,CL 103 mmol/L (100-108); CREATINE KINASE,CK 142 U/L (26-192); CREATININE 0.6 mg/dL (0.6-1.0); ESTIMATED GFR 117 mL/min (>60); GLUCOSE RANDOM 90 mg/dL (74-106); POTASSIUM,K 4.9 mmol/L (3.6-5.2); SODIUM,NA 140 mmol/L (140-148)
== END 2022-09-23 11:29 | disposition left against medical advice (07) ==
LOC: JP.ED 09:30
DX: F25.0 Schizoaffective disorder, bipolar type (principal); M79.7 Fibromyalgia; R45.82 Worries; K21.9 Gastro-esophageal reflux disease without esophagitis; E11.9 Type 2 diabetes mellitus without complications; J44.9 Chronic obstructive pulmonary disease, unspecified; E66.9 Obesity, unspecified; Z68.30 Body mass index [BMI] 30.0-30.9, adult; Z88.5 Allergy status to narcotic agent; Z88.8 Allergy status to other drugs, medicaments and biological substances; Z72.0 Tobacco use
CPT/HCPCS: 36415; 80053; 82550; 82803; 84443; 85025; 99284

== ENCOUNTER 2024-01-30 07:49 | Day surgery (SDC) | payer MEDICARE, MEDICAID ==
[2024-01-30] MEDS ORDERED: fentaNYL 100 MCG/2 ML SDV ONE (09:44)
[2024-01-30] MEDS ORDERED: Propofol 200 MG/20 ML SDV ONE ×2 (09:44→10:16)
[2024-01-30] MEDS ORDERED: Midazolam 1 MG/ML 2 ML SDV ONE (09:45)
[2024-01-30] MEDS: Lactated Ringers 1,000 ML IV SCH (11:50)
== END 2024-01-30 11:52 | disposition home or self-care (01) ==
LOC: JP.SDS 07:49
PROVIDERS: ATTEND Family Medicine
DX: K29.50 Unspecified chronic gastritis without bleeding (principal); D64.9 Anemia, unspecified; K63.5 Polyp of colon; J45.909 Unspecified asthma, uncomplicated; G47.33 Obstructive sleep apnea (adult) (pediatric); Z98.84 Bariatric surgery status; Z86.010 Personal history of colon polyps
CPT/HCPCS: 43239; 45380; 45381; 45385; 81025; J2250; J2704; J3010; J7120; 00813-QZ

== ENCOUNTER 2024-12-28 16:41 | Inpatient (IN) | payer MEDICARE, MEDICAID ==
[2024-12-28] MEDS ORDERED: Naloxone 0.4 MG/ML SDV IVPUSH PRN (17:17)
[2024-12-28 17:40] LABS: BASOPHILS ABSOLUTE AUTO 0.05 K/uL (0.00-0.10); BASOPHILS PERCENT AUTO 0.6 % (0.1-1.3); EOSINOPHILS ABSOLUTE AUTO 0.11 K/uL (0.00-0.40); EOSINOPHILS PERCENT AUTO 1.3 % (0.0-5.4); IMMATURE GRAN PERCENT AUTO 0.2 % (0.0-0.7); LYMPHOCYTES ABSOLUTE AUTO 1.82 K/uL (0.8-3.3); LYMPHOCYTES PERCENT AUTO 21.7 % (11.4-47.7); MONOCYTES ABSOLUTE AUTO 0.74 K/uL (0.20-0.90); MONOCYTES PERCENT AUTO 8.8 % (3.3-12.6); NEUTROPHILS ABSOLUTE AUTO 5.64 K/uL (1.0-7.6); NEUTROPHILS PERCENT AUTO 67.4 % (40.0-78.1); PLATELET COUNT,PLT 334 K/uL (130-375); RED BLOOD CELL COUNT 3.54 M/uL (3.77-5.24); WHITE BLOOD CELL COUNT,WBC 8.4 K/uL (3.2-11.0)
[2024-12-28 17:42] LABS: IMMATURE GRAN ABSOLUTE AUTO 0.02 K/uL (0.00-0.23)
[2024-12-28] MEDS: Ondansetron 4 MG/2 ML SDV IVPUSH ONE (17:58)
[2024-12-28 18:02] LABS: APPEARANCE,URINE CLEAR (CLEAR); GLUCOSE,URINE NEGATIVE (NEGATIVE); OCCULT BLOOD,URINE NEGATIVE (NEGATIVE)
[2024-12-28 18:08] LABS: A/G RATIO 0.9 (1.2-2.2); ALANINE AMINOTRANSFERASE,ALT 82 U/L (12-78); ASPARTATE AMNIOTRANSFERASE,AST 35 U/L (15-37); BILIRUBIN TOTAL 0.2 mg/dL (0.2-1.0); BLOOD UREA NITROGEN,BUN 3 mg/dL (7-18); CARBON DIOXIDE,CO2 30 mmol/L (21-32); CHLORIDE,CL 105 mmol/L (100-108); CREATININE 0.5 mg/dL (0.6-1.0); EST CRCL DRUG DOSING (CG) 137.21 mL/min; ESTIMATED GFR 120 mL/min (>60); GLUCOSE RANDOM 94 mg/dL (74-106); POTASSIUM,K 4.1 mmol/L (3.6-5.2); PROTEIN TOTAL,TP 6.9 g/dL (6.4-8.2); SODIUM,NA 141 mmol/L (140-148)
[2024-12-28 18:27] LABS: PRO B-TYPE NATRIUR PEPT,BNPPRO 181 pg/mL (5-125)
[2024-12-28] MEDS ORDERED: LORazepam 2 MG/ML SDV IV PRN (21:01)
[2024-12-28] MEDS: Lactated Ringers 1,000 ML IV SCH (21:13)
[2024-12-28] MEDS: Ondansetron 4 MG/2 ML SDV IV PRN (21:28)
[2024-12-28] MEDS: NICOTINE POLACRILEX 4 MG CHEW PRN (21:45)
[2024-12-29 05:23] LABS: BASOPHILS ABSOLUTE AUTO 0.04 K/uL (0.00-0.10); BASOPHILS PERCENT AUTO 0.7 % (0.1-1.3); EOSINOPHILS ABSOLUTE AUTO 0.14 K/uL (0.00-0.40); EOSINOPHILS PERCENT AUTO 2.3 % (0.0-5.4); IMMATURE GRAN PERCENT AUTO 0.2 % (0.0-0.7); LYMPHOCYTES ABSOLUTE AUTO 1.47 K/uL (0.8-3.3); LYMPHOCYTES PERCENT AUTO 23.9 % (11.4-47.7); MONOCYTES ABSOLUTE AUTO 0.60 K/uL (0.20-0.90); MONOCYTES PERCENT AUTO 9.8 % (3.3-12.6); NEUTROPHILS ABSOLUTE AUTO 3.89 K/uL (1.0-7.6); NEUTROPHILS PERCENT AUTO 63.1 % (40.0-78.1); PLATELET COUNT,PLT 270 K/uL (130-375); RED BLOOD CELL COUNT 3.17 M/uL (3.77-5.24); WHITE BLOOD CELL COUNT,WBC 6.2 K/uL (3.2-11.0)
[2024-12-29 05:39] LABS: BLOOD UREA NITROGEN,BUN 4.0 mg/dL (7-18); CARBON DIOXIDE,CO2 29.0 mmol/L (21-32); CHLORIDE,CL 107.0 mmol/L (100-108); CREATININE 0.4 mg/dL (0.6-1.0); EST CRCL DRUG DOSING (CG) 172.45 mL/min; ESTIMATED GFR 127.0 mL/min (>60); GLUCOSE RANDOM 98.0 mg/dL (74-106); POTASSIUM,K 3.9 mmol/L (3.6-5.2); SODIUM,NA 142.0 mmol/L (140-148)
[2024-12-29 05:56] LABS: IMMATURE GRAN ABSOLUTE AUTO 0.01 K/uL (0.00-0.23)
== END 2024-12-29 17:40 | disposition home or self-care (01) | DRG 390 ==
LOC: JP.ED 16:41 → JP.MS 20:03
PROVIDERS: ADMIT Student in an Organized Health Care Education/Training Program; ATTEND Surgery
DX: K56.609 Unspecified intestinal obstruction, unspecified as to partial versus complete obstruction (principal); R16.1 Splenomegaly, not elsewhere classified; R60.9 Edema, unspecified; G47.30 Sleep apnea, unspecified; F41.9 Anxiety disorder, unspecified; F31.9 Bipolar disorder, unspecified; H54.7 Unspecified visual loss; M79.7 Fibromyalgia; M19.90 Unspecified osteoarthritis, unspecified site; F43.10 Post-traumatic stress disorder, unspecified; E66.9 Obesity, unspecified; E11.40 Type 2 diabetes mellitus with diabetic neuropathy, unspecified; J44.9 Chronic obstructive pulmonary disease, unspecified; K21.9 Gastro-esophageal reflux disease without esophagitis; F25.0 Schizoaffective disorder, bipolar type; G89.4 Chronic pain syndrome; Z86.0100 Personal history of colon polyps, unspecified; Z88.8 Allergy status to other drugs, medicaments and biological substances; E11.9 Type 2 diabetes mellitus without complications; Z79.899 Other long term (current) drug therapy; Z87.11 Personal history of peptic ulcer disease; Z68.26 Body mass index [BMI] 26.0-26.9, adult; Z98.890 Other specified postprocedural states; Z98.84 Bariatric surgery status; Z79.82 Long term (current) use of aspirin; Z88.5 Allergy status to narcotic agent; Z88.6 Allergy status to analgesic agent
CPT/HCPCS: 36415; 71045 ×2; 80053; 81003; 83605; 83690; 83735; 83880; 84484; 85025; 86140; 93005; J2405; J7030; 74018; 74018-26; 74177; 74177-26; 80048; 82947; 93010; 96361; 96374; 96375; 99223; 99238; 99285; 99285-25; A9270-GY; J1171; J2470; J7120; Q9967